=== PATIENT | female | born 1985 | race African-American/Black ===

== ENCOUNTER 2017-08-06 05:33 | Inpatient (IN) | payer MEDICARE, MEDICAID ==
[2017-08-06] VITALS (10 sets, daily range): BP systolic 113–171; BP diastolic 63–109; PULSE 109–134; RESP 16–27; TEMP 99.6–102.8; O2SAT 94–97
[~2017-08-06] VITALS: Ht 157.5 cm; Wt 77.7 kg
[~2017-08-06 05:33] MED LIST: IBUP800T23 PO; LISI10TA PO; METH750T2 PO; [UNRECOGNIZED DRUG - REMARK]
[2017-08-06] MEDS ORDERED: SODIUM CHLOR 0.9% 1000 ML INJ 1,000 ML IV ONE ×2 (05:40)
[2017-08-06] MEDS ORDERED: SODIUM CHLOR 0.9% 1000 ML INJ 700 ML IV ONE (05:40)
[2017-08-06] MEDS ORDERED: ACETAMINOPHEN 325 MG TAB PO ONE (05:45)
[2017-08-06] MEDS ORDERED: ONDANSETRON HCL 4 MG/2 ML VIAL ONE (05:48)
--- NOTE | 2017-08-06 05:51 | PD ---
HPI Chief Complaint: Fever Time Seen by Provider: 05:40 Travel History International Travel<30 days: No Contact w/Intl Traveler<30days: No Traveled to known affect area: No History of Present Illness HPI The 32 year-old woman, history of HIV, off meds for several months, presents to the emergency department feeling poorly for several days, lower abdominal pain for several days, and noted to have fever the emergency department here. She states she had a bowel movement before she came in was normal. No diarrhea. No nausea vomiting previously, but vomiting here in the ED. No urinary complaints. She sexually active with women only. No vaginal discharge or vaginal bleeding. History Past Medical History Narrative Medical HIV LMP: 06/2017 : 0 Para: 0 Past Surgical History Surgical History: No Previous Surgery Social History Alcohol Use: No Tobacco Use: Yes Allergies-Medications (Allergen,Severity, Reaction): Coded Allergies: No Known Allergies (Verified , 08/06/17) Reported Meds & Prescriptions Reported Meds & Active Scripts Active Reported [Unk Hiv Med] DAILY Review of Systems Except as stated in HPI: all other systems reviewed are Neg Physical Exam Narrative GENERAL: Well-appearing 32-year-old woman, no acute distress. SKIN: Focused skin assessment flushed and hot. NECK: Trachea midline. No JVD. CARDIOVASCULAR: Heart rate rapid. RESPIRATORY: No accessory muscle use. Clear to auscultation. Breath sounds equal bilaterally. GASTROINTESTINAL: Abdomen is obese and soft. She has moderate lower abdominal tenderness with a little bit of voluntary guarding in the right. No rebound. MUSCULOSKELETAL: No obvious deformities. No edema. NEUROLOGICAL: Awake and alert. No obvious cranial nerve deficits. Motor grossly within normal limits. Normal speech. PSYCHIATRIC: Appropriate mood and affect; insight and judgment normal. Data Data Last Documented VS Vital Signs Date Time Temp Pulse Resp B/P (MAP) Pulse Ox O2 Delivery O2 Flow Rate FiO2 08/06/17 05:43 19 97 08/06/17 05:35 102.8 130 167/109 (128) Orders Orders Electrocardiogram (08/06/17 05:40) Complete Blood Count With Diff (08/06/17 05:40) Comprehensive Metabolic Panel (08/06/17 05:40) Prothrombin Time / Inr (Pt) (08/06/17 05:40) Act Partial Throm Time (Ptt) (08/06/17 05:40) Lactic Acid Sepsis Protocol (08/06/17 05:40) Lipase (08/06/17 05:40) Troponin I (08/06/17 05:40) Urinalysis - C+S If Indicated (08/06/17 05:40) Influenzae A/B Antigen (08/06/17 05:40) Blood Culture (08/06/17 05:40) Chest, Single Ap (08/06/17 05:40) Blood Glucose (08/06/17 05:40) Ecg Monitoring (08/06/17 05:40) Iv Access Insert/Monitor (08/06/17 05:40) Oximetry (08/06/17 05:40) Oxygen Administration (08/06/17 05:40) Acetaminophen (Tylenol) (08/06/17 05:45) Ct Abd/Pel W Iv Contrast(Rout) (08/06/17 05:40) Sodium Chlor 0.9% 1000 Ml Inj (Ns 1000 M (08/06/17 05:40) Sodium Chlor 0.9% 1000 Ml Inj (Ns 1000 M (08/06/17 05:40) Sodium Chlor 0.9% 1000 Ml Inj (Ns 1000 M (08/06/17 05:40) Ed Urine Pregnancytest Poc (08/06/17 05:47) Ondansetron Inj (Zofran Inj) (08/06/17 06:00) Ondansetron Inj (Zofran Inj) (08/06/17 05:48) Cath For Specimen (08/06/17 06:30) Iohexol 350 Inj (Omnipaque 350 Inj) (08/06/17 06:37) Vancomycin Inj (Vancomycin Inj) (08/06/17 07:00) Piperacil-Tazo 3.375 Gm Premix (Zosyn 3. (08/06/17 07:00) Us Pelvis Comp Ladder Operator/Non-Preg (08/06/17 ) Labs Laboratory Tests Test 08/06/17 05:45 White Blood Count 17.2 TH/MM3 Red Blood Count 3.75 MIL/MM3 Hemoglobin 12.0 GM/DL Hematocrit 34.6 % Mean Corpuscular Volume 92.2 FL Mean Corpuscular Hemoglobin 32.0 PG Mean Corpuscular Hemoglobin Concent 34.7 % Red Cell Distribution Width 13.9 % Platelet Count 217 TH/MM3 Mean Platelet Volume 7.5 FL Neutrophils (%) (Auto) 81.6 % Lymphocytes (%) (Auto) 9.0 % Monocytes (%) (Auto) 9.3 % Eosinophils (%) (Auto) 0.0 % Basophils (%) (Auto) 0.1 % Neutrophils # (Auto) 14.0 TH/MM3 Lymphocytes # (Auto) 1.5 TH/MM3 Monocytes # (Auto) 1.6 TH/MM3 Eosinophils # (Auto) 0.0 TH/MM3 Basophils # (Auto) 0.0 TH/MM3 CBC Comment DIFF FINAL Differential Comment Prothrombin Time 12.0 SEC Prothromb Time International Ratio 1.1 RATIO Activated Partial Thromboplast Time 32.0 SEC Blood Urea Nitrogen 7 MG/DL Creatinine 0.69 MG/DL Random Glucose 126 MG/DL Total Protein 8.5 GM/DL Albumin 2.9 GM/DL Calcium Level 8.1 MG/DL Alkaline Phosphatase 51 U/L Aspartate Amino Transf (AST/SGOT) 30 U/L Alanine Aminotransferase (ALT/SGPT) 19 U/L Total Bilirubin 0.6 MG/DL Sodium Level 136 MEQ/L Potassium Level 3.6 MEQ/L Chloride Level 107 MEQ/L Carbon Dioxide Level 19.4 MEQ/L Anion Gap 10 MEQ/L Estimat Glomerular Filtration Rate 120 ML/MIN Lactic Acid Level 1.2 mmol/L Troponin I LESS THAN 0.02 NG/ML Lipase 50 U/L MDM Medical Decision Making Medical Screen Exam Complete: Yes Emergency Medical Condition: Yes Interpretation(s) My review of EKG: Sinus tachycardia at a rate of 127, normal axis, normal intervals, no ischemia. LABS: CBC remarkable for mild leukocytosis. CMP CMP overall unremarkable. She is a little bit of a gamma Lipase low Troponin negative Lactate 1.2 Coags mildly elevated Influenza negative CT abdomen and pelvis: Complex multiloculated multiseptated mass in the pelvis measuring up to 12.1 cm in diameter. Differential diagnosis includes infection/ abscess versus neoplasm possibly ovarian in origin. A small amount of free fluid in the pelvis. Mildly enlarged pelvic and left inguinal lymph nodes. No bowel obstruction or free air. Chest x-ray: Mild right basilar airspace disease. Differential diagnosis includes small bronchopneumonia. Differential Diagnosis Sepsis, [place], appendicitis, , UTI, colitis, PID, other Narrative Course Medical decision making the 32-year-old woman presents emergent further history of HIV, not on meds for couple months, with fever tachycardia abdominal pain and vomiting suspicious for UTI or [place], other intra-abdominal processes possible as well. Denies any symptoms. Check CT, labs, lactate, IV fluids, possible antibiotics. Reassess. Bobby Lawson MD Aug 06, 2017 05:51
[2017-08-06] MEDS ORDERED: ONDANSETRON HCL 4 MG/2 ML VIAL IV ONE (06:00)
[2017-08-06 06:11] LABS: BASOPHIL % 0.1 % (0.0-2.0); HEMATOCRIT 34.6 % (35.0-46.0); HEMO FLAGS DIFF FINAL; LYMPHOCYTE # 1.5 TH/MM3 (1.0-4.8); MEAN CELL VOLUME 92.2 FL (80.0-100.0); MEAN CORPUSCULAR HGB CONC 34.7 % (32.0-36.0); MONO % 9.3 % (0.0-8.0); NEUT % 81.6 % (16.0-70.0); PLATELET COUNT 217 TH/MM3 (150-450); RED BLOOD COUNT 3.75 MIL/MM3 (4.00-5.30); RED CELL DISTRIBUTION WIDTH 13.9 % (11.6-17.2); WHITE BLOOD COUNT 17.2 TH/MM3 (4.0-11.0)
[2017-08-06 06:22] LABS: INTERNATIONAL NORMALIZED RATIO 1.1 RATIO
[2017-08-06] MEDS ORDERED: IOHEXOL 350 MG/ML 10 ML VIAL (for RAD DIAG) IVCONTRAST ONE (06:37)
--- NOTE | 2017-08-06 06:49 | RADRPT ---
EXAM DATE/TIME: 08/06/2017 05:59 [facility] COMPARISON: No previous studies available for comparison. INDICATIONS : Fever and vomiting. MEDICAL HISTORY : Smoker. SURGICAL HISTORY : None. ENCOUNTER: Initial ACUITY: 2 days PAIN SCORE: 0/10 LOCATION: Bilateral FINDINGS: There is mild right basilar airspace disease which could represent small bronchopneumonia. No effusio n. Left lung relatively clear. Heart size upper limits normal. CONCLUSION: 1. Mild right basilar airspace disease. Differential diagnosis includes a small bronchopneumonia. Elie Calvert MD on August 06, 2017 at 6:47 Board Certified Radiologist. This report was verified electronically.
--- NOTE | 2017-08-06 06:49 | RADRPT ---
EXAM DATE/TIME: 08/06/2017 06:21 [facility] COMPARISON: No previous studies available for comparison. INDICATIONS : Abdominal pain with fever. IV CONTRAST: 100 cc Omnipaque 350 (iohexol) IV ORAL CONTRAST: No oral contrast ingested. RADIATION DOSE: 7.37 CTDIvol (mGy) MEDICAL HISTORY : HIV. SURGICAL HISTORY : None. ENCOUNTER: Initial ACUITY: 1 day PAIN SCALE: 8/10 LOCATION: abdomen TECHNIQUE: Volumetric scanning of the abdomen and pelvis was performed. Using automated exposure control and ad justment of the mA and/or kV according to patient size, radiation dose was kept as low as reasonably achievable to obtain optimal diagnostic quality images. DICOM format image data is available electro nically for review and comparison. FINDINGS: There is minimal right basilar air space disease in the lungs. No acute findings in the liver, spleen, adrenals, kidneys and pancreas. Within the pelvis there is a large complex multiloculated fluid collection with thick septations scot uring up to 12.1 x 6.9 x 7.4 cm. Patient reportedly has fever. Differential diagnosis includes pelvic abscesses although other etiologies such as ovarian neoplasm not excluded. There is a small amount o f free fluid in the pelvis. There is no free air. No bowel obstruction. They are mildly enlarged pelvic lymph nodes measuring up to 1.4 x 2.5 cm and the left external iliac region. Borderline enlarged left inguinal lymph nodes as well. CONCLUSION: 1. Complex multiloculated multiseptated mass in the pelvis measuring up to 12.1 cm in diameter. Diffe rential diagnosis includes infection/abscess versus neoplasm possibly ovarian in origin. Small amount of free fluid in the pelvis. Mildly enlarged pelvic and left inguinal lymph nodes. No bowel obstruct ion or free air. Elie Calvert MD on August 06, 2017 at 6:40 Board Certified Radiologist. This report was verified electronically.
[2017-08-06 06:58] LABS: ALKALINE PHOSPHATASE 51 U/L (45-117); TOTAL BILIRUBIN ADULT 0.6 MG/DL (0.2-1.0)
[2017-08-06] MEDS ORDERED: PIPERACIL-TAZO 3.375 GM PREMIX 50 ML IV ONE (07:00)
[2017-08-06] MEDS ORDERED: VANCOMYCIN INJ 1,000 MG in SODIUM CHLOR 0.9% 250 ML INJ 250 ML IV ONE (07:00)
[2017-08-06 07:02] LABS: ALT (GPT) 19 U/L (10-53); ANION GAP 10 MEQ/L (5-15); AST (GOT) 30 U/L (15-37); BICARBONATE 19.4 MEQ/L (21.0-32.0); CHLORIDE 107 MEQ/L (98-107); GLOMERULAR FILTRATION RATE 120 ML/MIN (>89); POTASSIUM 3.6 MEQ/L (3.5-5.1); SODIUM (NA) 136 MEQ/L (136-145)
[2017-08-06 07:04] LABS: BLOOD UREA NITROGEN 7 MG/DL (7-18)
--- NOTE | 2017-08-06 07:50 | PD ---
Data Data Last Documented VS Vital Signs Date Time Temp Pulse Resp B/P (MAP) Pulse Ox O2 Delivery O2 Flow Rate FiO2 08/06/17 07:15 101.8 116 16 171/106 (127) 94 Room Air Orders Orders Electrocardiogram (08/06/17 05:40) Complete Blood Count With Diff (08/06/17 05:40) Comprehensive Metabolic Panel (08/06/17 05:40) Prothrombin Time / Inr (Pt) (08/06/17 05:40) Act Partial Throm Time (Ptt) (08/06/17 05:40) Lactic Acid Sepsis Protocol (08/06/17 05:40) Lipase (08/06/17 05:40) Troponin I (08/06/17 05:40) Urinalysis - C+S If Indicated (08/06/17 05:40) Influenzae A/B Antigen (08/06/17 05:40) Blood Culture (08/06/17 05:40) Chest, Single Ap (08/06/17 05:40) Blood Glucose (08/06/17 05:40) Ecg Monitoring (08/06/17 05:40) Iv Access Insert/Monitor (08/06/17 05:40) Oximetry (08/06/17 05:40) Oxygen Administration (08/06/17 05:40) Acetaminophen (Tylenol) (08/06/17 05:45) Ct Abd/Pel W Iv Contrast(Rout) (08/06/17 05:40) Sodium Chlor 0.9% 1000 Ml Inj (Ns 1000 M (08/06/17 05:40) Sodium Chlor 0.9% 1000 Ml Inj (Ns 1000 M (08/06/17 05:40) Sodium Chlor 0.9% 1000 Ml Inj (Ns 1000 M (08/06/17 05:40) Ed Urine Pregnancytest Poc (08/06/17 05:47) Ondansetron Inj (Zofran Inj) (08/06/17 06:00) Ondansetron Inj (Zofran Inj) (08/06/17 05:48) Cath For Specimen (08/06/17 06:30) Iohexol 350 Inj (Omnipaque 350 Inj) (08/06/17 06:37) Vancomycin Inj (Vancomycin Inj) (08/06/17 07:00) Piperacil-Tazo 3.375 Gm Premix (Zosyn 3. (08/06/17 07:00) Us Pelvis Comp W Doppler (08/06/17 ) Admit Order (Ed Use Only) (08/06/17 07:46) Labs Laboratory Tests Test 08/06/17 05:45 White Blood Count 17.2 TH/MM3 Red Blood Count 3.75 MIL/MM3 Hemoglobin 12.0 GM/DL Hematocrit 34.6 % Mean Corpuscular Volume 92.2 FL Mean Corpuscular Hemoglobin 32.0 PG Mean Corpuscular Hemoglobin Concent 34.7 % Red Cell Distribution Width 13.9 % Platelet Count 217 TH/MM3 Mean Platelet Volume 7.5 FL Neutrophils (%) (Auto) 81.6 % Lymphocytes (%) (Auto) 9.0 % Monocytes (%) (Auto) 9.3 % Eosinophils (%) (Auto) 0.0 % Basophils (%) (Auto) 0.1 % Neutrophils # (Auto) 14.0 TH/MM3 Lymphocytes # (Auto) 1.5 TH/MM3 Monocytes # (Auto) 1.6 TH/MM3 Eosinophils # (Auto) 0.0 TH/MM3 Basophils # (Auto) 0.0 TH/MM3 CBC Comment DIFF FINAL Differential Comment Prothrombin Time 12.0 SEC Prothromb Time International Ratio 1.1 RATIO Activated Partial Thromboplast Time 32.0 SEC Blood Urea Nitrogen 7 MG/DL Creatinine 0.69 MG/DL Random Glucose 126 MG/DL Total Protein 8.5 GM/DL Albumin 2.9 GM/DL Calcium Level 8.1 MG/DL Alkaline Phosphatase 51 U/L Aspartate Amino Transf (AST/SGOT) 30 U/L Alanine Aminotransferase (ALT/SGPT) 19 U/L Total Bilirubin 0.6 MG/DL Sodium Level 136 MEQ/L Potassium Level 3.6 MEQ/L Chloride Level 107 MEQ/L Carbon Dioxide Level 19.4 MEQ/L Anion Gap 10 MEQ/L Estimat Glomerular Filtration Rate 120 ML/MIN Lactic Acid Level 1.2 mmol/L Troponin I LESS THAN 0.02 NG/ML Lipase 50 U/L MDM Supervised Visit with VICKI: No Narrative Course The patient was initially evaluated by the previous provider and signed out to me at the beginning of my shift pending call back from admitting team to admit the patient. See his note for further details. Briefly this a 32-year-old female with history of HIV who presents with fever and lower abdominal pain. She has a white count of 17,000. Fever of 102.8 with a heart rate of 130 initially. She was given IV vancomycin and IV Zosyn by the previous provider as well as a 30 cc/kg normal saline bolus. Chest x- ray shows mild right basilar airspace disease with a differential including small bronchopneumonia. CT abdomen pelvis shows a large loculated mass in the pelvis with a diameter of up to 12 cm with a differential of abscess/infection versus mass. Pelvic ultrasound ordered to further characterize this mass. Case discussed with Dr. Sinclair who will admit the patient to his service. Diagnosis Primary Impression: Sepsis Qualified Codes: A41.9 - Sepsis, unspecified organism Additional Impressions: Bronchopneumonia Pelvic mass Admitting Information Admitting Physician Requests: Castillo Pham MD Aug 06, 2017 07:50
[2017-08-06 08:05] LABS: BLOOD, URINE MOD (NEG); COMMENT (UR) CATH-CULT NOT IND; CULTURE IF INDICATED CATH CULTURE NOT IND; GLUCOSE,URINE NEG (NEG); KETONE, URINE 10 mg/dL (NEG); MUCUS URINE FEW /lpf (OCC); NITRITE,URINE NEG (NEG); PH, URINE 6.5 (5.0-8.5); URINE COLOR YELLOW (YELLW/STRAW)
--- NOTE | 2017-08-06 08:06 | RADRPT ---
EXAM DATE/TIME: 08/06/2017 07:10 [facility] COMPARISON: CT ABDOMEN & PELVIS W CONTRAST, August 06, 2017, 6:21. INDICATIONS : Pelvic pain. MEDICAL HISTORY : HIV. SURGICAL HISTORY : None. ENCOUNTER: Initial ACUITY: 1 week PAIN SCORE: 5/10 LOCATION: Bilateral pelvis MEASUREMENTS: UTERUS: Not visualized transabdominally. ENDOMETRIAL STRIPE: RIGHT OVARY: 5.0 x 3.5 x 3.8 cm LEFT OVARY: 4.7 x 5.1 x 4.3 cm FINDINGS: UTERUS: The uterus is not visualized transabdominally. The patient refused transvaginal exam. RIGHT OVARY: The right ovary demonstrates small normal-appearing follicles and punctate areas of calcifications. M edially surrounding the right ovary is a complex cystic structure which demonstrates multiple tubular areas which demonstrate thin and thickened donohue. LEFT OVARY: The left ovary demonstrates an avascular dominant follicle which demonstrates lacy internal septation s with the appearance of a hemorrhagic corpus luteum. Immediately surrounding the left ovary is a lar ge complex structure of closely adherent connecting tubular structures which demonstrate alternating thick and thin septations. MISCELLANEOUS: Trace free fluid seen within the posterior cul-de-sac.. CONCLUSION: The uterus is not visualized on this transabdominal exam and the patient refused a transvaginal exam. The uterus was normal in appearance on the comparison CT. The bilateral ovaries are surrounded by a closely adherent tubular structures which demonstrate alternating areas of thin and thickened donohue. No internal debris is identified within the lumens of the structures. Given the patient's presentatio n of fever and pain and the appearance of the closely adherent tubular structures this is concerning for PID with bilateral tubo-ovarian abscess. Neoplasm remains within the differential but is consider ed less likely. Recommend followup imaging after appropriate antibiotic therapy. Jovana Yip MD on August 06, 2017 at 7:51 Board Certified Radiologist. This report was verified electronically.
[2017-08-06] MEDS ORDERED: MAGNESIUM HYDROXIDE SUSP 30 ML CUP PO PRN (08:15)
[2017-08-06] MEDS ORDERED: BISACODYL 10 MG SUPP RECTAL PRN (08:15)
[2017-08-06] MEDS ORDERED: LACTULOSE SYRUP 20 GM/30 ML CUP PO PRN (08:15)
[2017-08-06] MEDS ORDERED: SODIUM CHLORIDE 0.9% FLUSH 10 ML FLUSH IV FLUSH PRN (08:15)
[2017-08-06] MEDS ORDERED: SENNOSIDES 8.6 MG TAB PO PRN (08:15)
[2017-08-06] MEDS ORDERED: Vancomycin Consult Pharmacy 1 EA OTHER SCH (08:15)
[2017-08-06] MEDS ORDERED: NALOXONE HCL 0.4 MG/ML AMP IV PUSH PRN ×2 (08:15→23:30)
[2017-08-06] MEDS ORDERED: ONDANSETRON HCL 4 MG/2 ML VIAL IVP PRN (08:15)
--- NOTE | 2017-08-06 08:16 | EKG ---
Date Performed: 08/06/2017 Time Performed: 05:42:36 PTAGE: 32 years EKG: SINUS TACHYCARDIA INCOMPLETE RIGHT BUNDLE BRANCH BLOCK NONSPECIFIC T-WAVE ABNORMALITY ABNOR MAL RHYTHM ECG NO PREVIOUS TRACING DOCTOR: Kashif Talley Interpretating Date/Time 08/06/2017 08:14:53
[2017-08-06] MEDS: SODIUM CHLORIDE 0.9% FLUSH 10 ML FLUSH IV FLUSH SCH ×2 (08:31→21:00)
[2017-08-06] MEDS: SODIUM CHLOR 0.9% 1000 ML INJ 1,000 ML IV SCH ×2 (08:46→13:38)
--- NOTE | 2017-08-06 09:28 | PD.ID.CON ---
History of Present Illness Service ID Consult Requested By Dr Sinclair Reason for Consult HIV pelvic mass fever Primary Care Physician Non-Staff Diagnoses: History of Present Illness 32 yo female with HIV disaese npon compliant, off HAART for 2 yrs, non complaint SHe developped suddent onset L sided lower abdomen pain and fever, chills She presented with fever up to m102.8 and leukocytosis of [address] showed Complex multiloculated multiseptated mass in the pelvis measuring up to 12.1 cm in diameter. Differential diagnosis includes infection/abscess versus neoplasm possibly ovarian in origin. She denies any recent sexual activity with male parthners Was not recently seen by DIDACTIC INSTRUCTOR LMP about 3-4 weeks ago Denies vag d/c or drainage No IUD Review of Systems Except as stated in HPI: all other systems reviewed are Neg Past Family Social History Allergies: Coded Allergies: No Known Allergies (Verified , 08/06/17) Past Medical History HIV dz Past Surgical History none Active Ordered Medications Medications where reviewed in EMR Antibiotics Include: zosyn vancomycin - x 1 started on amp+ gent + clinda Family History reviewed and noncontributory. Social History Patient's smoked 2 packs per day since she was a teenager. Nondrinker. Occasional marijuana. Lives with girlfriend. Physical Exam Vital Signs Vital Signs Date Time Temp Pulse Resp B/P (MAP) Pulse Ox O2 Delivery O2 Flow Rate FiO2 08/06/17 07:52 116 16 130/79 (96) 94 Room Air 08/06/17 07:15 101.8 116 16 171/106 (127) 94 Room Air 08/06/17 05:43 19 97 08/06/17 05:35 102.8 130 19 167/109 (128) 97 Physical Exam CONSTITUTIONAL/GENERAL: This is an obese patient, in no apparent distress, but looks sick TUBES/LINES/DRAINS: SKIN: No jaundice, rashes, or lesions. Skin temperature appropriate. Not diaphoretic. HEAD: Atraumatic. Normocephalic. EYES: Pupils equal and round and reactive. Extraocular motions intact. No scleral icterus. No injection or drainage. Fundi not examined. ENT: Hearing grossly normal. Nose without bleeding or purulent drainage. Oral mucosaew without visible erythema, exudates, masses, or lesions. NO thrush NECK: Trachea midline. Supple, nontender. CARDIOVASCULAR: Regular rate and rhythm without murmurs, gallops, or rubs. No JVD. Peripheral pulses symmetric. RESPIRATORY/CHEST: Symmetric, unlabored respirations. Clear to auscultation. Breath sounds equal bilaterally. No wheezes, rales, or rhonchi. GASTROINTESTINAL: Abdomen soft,very tender to palpation in LLQ , mildly distended. No hepato-splenomegaly, or palpable masses. No guarding. Bowel sounds present. GENITOURINARY: Without palpable bladder distension. MUSCULOSKELETAL: Extremities without clubbing, cyanosis, or edema. . No calf tenderness. No mottling or clubbing. LYMPHATICS: No palpable cervical or supraclavicular adenopathy. NEUROLOGICAL: Awake and alert. Motor and sensory grossly within normal limits. Follows commands. Clear speech. Moves all extremities. PSYCHIATRIC: No obvious anxiety/depression. no apparent hallucinations or other psychotic thought process. Laboratory Laboratory Tests Test 08/06/17 05:45 08/06/17 07:50 White Blood Count 17.2 Red Blood Count 3.75 Hemoglobin 12.0 Hematocrit 34.6 Mean Corpuscular Volume 92.2 Mean Corpuscular Hemoglobin 32.0 Mean Corpuscular Hemoglobin Concent 34.7 Red Cell Distribution Width 13.9 Platelet Count 217 Mean Platelet Volume 7.5 Neutrophils (%) (Auto) 81.6 Lymphocytes (%) (Auto) 9.0 Monocytes (%) (Auto) 9.3 Eosinophils (%) (Auto) 0.0 Basophils (%) (Auto) 0.1 Neutrophils # (Auto) 14.0 Lymphocytes # (Auto) 1.5 Monocytes # (Auto) 1.6 Eosinophils # (Auto) 0.0 Basophils # (Auto) 0.0 CBC Comment DIFF FINAL Differential Comment Prothrombin Time 12.0 Prothromb Time International Ratio 1.1 Activated Partial Thromboplast Time 32.0 Blood Urea Nitrogen 7 Creatinine 0.69 Random Glucose 126 Total Protein 8.5 Albumin 2.9 Calcium Level 8.1 Alkaline Phosphatase 51 Aspartate Amino Transf (AST/SGOT) 30 Alanine Aminotransferase (ALT/SGPT) 19 Total Bilirubin 0.6 Sodium Level 136 Potassium Level 3.6 Chloride Level 107 Carbon Dioxide Level 19.4 Anion Gap 10 Estimat Glomerular Filtration Rate 120 Lactic Acid Level 1.2 Troponin I LESS THAN 0.02 Lipase 50 Urine Color YELLOW Urine Turbidity CLEAR Urine pH 6.5 Urine Specific Cameron GREATER THAN 1.050 Urine Protein 30 Urine Glucose (UA) NEG Urine Ketones 10 Urine Occult Blood MOD Urine Nitrite NEG Urine Bilirubin NEG Urine Urobilinogen 2.0 Urine Leukocyte Esterase NEG Urine RBC 14 Urine WBC 1 Urine Mucus FEW Microscopic Urinalysis Comment CATH-CULT NOT IND Date/Time Source Procedure Growth Status 08/06/17 05:45 Blood Peripheral Aerobic Blood Culture Pending Received 08/06/17 05:45 Blood Peripheral Anaerobic Blood Culture Pending Received 08/06/17 06:03 Nasal Washing Influenza Types A,B Antigen ([facility]) - Final NEGATIVE FOR FLU A AND B ANTIGEN.... Complete Result Diagram: 08/06/1745 08/06/1745 Imaging Last Impressions Chest X-Ray 08/06/1740 Signed Impressions: Service Date/Time: Sunday, August 06, 2017 05:59 - CONCLUSION: 1. Mild right basilar airspace disease. Differential diagnosis includes a small bronchopneumonia. Elie Calvert MD Abdomen/Pelvis CT 08/06/1740 Signed Impressions: Service Date/Time: Sunday, August 06, 2017 06:21 - CONCLUSION: 1. Complex multiloculated multiseptated mass in the pelvis measuring up to 12.1 cm in diameter. Differential diagnosis includes infection/abscess versus neoplasm possibly ovarian in origin. Small amount of free fluid in the pelvis. Mildly enlarged pelvic and left inguinal lymph nodes. No bowel obstruction or free air. Elie Calvert MD Pelvis Ultrasound 08/06/17 0000 Signed Impressions: Service Date/Time: Sunday, August 06, 2017 07:10 - CONCLUSION: The uterus is not visualized on this transabdominal exam and the patient refused a transvaginal exam. The uterus was normal in appearance on the comparison CT. The bilateral ovaries are surrounded by a closely adherent tubular structures which demonstrate alternating areas of thin and thickened donohue. No internal debris is identified within the lumens of the structures. Given the patient's presentation of fever and pain and the appearance of the closely adherent tubular structures this is concerning for PID with bilateral tubo-ovarian abscess. Neoplasm remains within the differential but is considered less likely. Recommend followup imaging after appropriate antibiotic therapy. Jovana Yip MD Assessment and Plan Assessment and Plan Probable pelvic abscess ( complex fluid collection, fever and leukocytosis) HIV disease, non compliant , off HAART 2 years Fever - 2/2 pelvic abscess Cont broad spectrum abx (zosyn) [facility] consultation further abx adjustement per clx report Margaux Lipscomb MD Aug 06, 2017 09:28
[2017-08-06 11:22] LABS: CHLAMYDIA PCR NOT DETECTED (NOT DETECT); NEISSERIA PCR NOT DETECTED (NOT DETECT)
[2017-08-06] MEDS ORDERED: AMPICILLIN INJ 2,000 MG in SODIUM CHLORIDE 0.9% INJ 100 ML IV SCH (12:00)
[2017-08-06] MEDS ORDERED: GENTAMICIN INJ 400 MG in SODIUM CHLORIDE 0.9% INJ 100 ML IV SCH (12:00)
[2017-08-06] MEDS ORDERED: PIPERACIL-TAZO 3.375 GM PREMIX 50 ML IV SCH (13:00)
--- NOTE | 2017-08-06 13:15 | PD.CONS ---
HPI Chief Complaint Abdominal pain Date Seen: Aug 06, 2017 Time Seen: 12:30 (Bernardo Reeves MD R2) Travel History International Travel<30 Days: No Contact w/Intl Traveler<30Days: No Known Affected Area: No (Bernardo Reeves MD R2) History of Present Illness HPI 32 yo G0 with PMH of HIV presenting with a two-day history of pelvic/lower abdominal pain. Started 2 days ago a few hours after having sex with her girlfriend (now aida) of 6 years. She didn't think much of it at first, but it progressively worsened prompting her to seek care. The pain is constant and localized to her lower abdomen/pelvis, slightly worse on the right-hand side. She denies vaginal bleeding or discharge, genital rashes, dysuria, constipation , nausea or vomiting, diarrhea. She does endorse some subjective fevers at home. Prior history significant for Chlamydia 2 years ago. That was her only STD that she knows of. Regarding her HIV, she is established with an ID physician, Dr. Michaud ( patient not sure of spelling). She states her last visit was 2 months ago. She thinks her last CD4 count was a year ago and she says that it was "good", but she does not remember the number. She does not know when her last viral load was. She has not been on antiviral treatment. (Bernardo Reeves MD R2) History Past Medical History Narrative Medical HIV (Bernardo Reeves MD R2) Obstetric History Obstetric History G0 LMP Jun 2017 (Bernardo Reeves MD R2) Past Surgical History Surgical History: No Previous Surgery (Bernardo Reeves MD R2) Family History Narrative Family History Grandfather has sickle cell trait (Bernardo Reeves MD R2) Social History Narrative Social History Monogamous relationship with female partner (aida) for 6 years Lives with girlfriend Girlfriend's grandson visits often Alcohol Use: No Tobacco Use: Yes (2 packs per day) Substance Abuse: No (Bernardo Reeves MD R2) Allergies-Medications (Allergen,Severity, Reaction): Coded Allergies: No Known Allergies (Verified , 08/06/17) Home Meds Reported Medications [Unk Hiv Med] No Conflict Check, DAILY 01/05/15 Review of Systems Except as stated in HPI: all other systems reviewed are Neg (Bernardo Reeves MD R2) Physical Exam Vital Signs Date Time Temp Pulse Resp B/P (MAP) Pulse Ox O2 Delivery O2 Flow Rate FiO2 08/06/17 13:00 08/06/17 09:00 116 27 146/96 (113) 96 Room Air 08/06/17 07:52 116 16 130/79 (96) 94 Room Air 08/06/17 07:15 101.8 116 16 171/106 (127) 94 Room Air 08/06/17 05:43 19 97 08/06/17 05:35 102.8 130 19 167/109 (128) 97 Narrative GENERAL: Well-developed, well-nourished obese female lying in bed appearing uncomfortable but in no acute distress SKIN: No rashes, ecchymoses or lesions. Cool and dry. HEAD: NC/AT EYES: PERRL. EOMI. No conjunctival injection or drainage. ENT: MMM, OP without erythema, tonsillar swelling, or exudate. NECK: Supple, no lymphadenopathy. CARDIOVASCULAR: NRRR. Normal S1/S2. No MRG RESPIRATORY: CTAB. No crackles or wheezes. GASTROINTESTINAL: Abdomen soft, non-distended, moderately tender palpation in bilateral pelvis, significantly worsened right pelvis. No hepato-splenomegaly or palpable masses. MUSCULOSKELETAL: Extremities without clubbing, cyanosis, or edema. NEUROLOGICAL: Awake and alert. Cranial nerves II through XII grossly intact. Moves all extremities without difficulty. Normal speech. (Bernardo Reeves MD R2) Data Data Vital Signs Reviewed: Yes Orders Orders Electrocardiogram (08/06/17 05:40) Complete Blood Count With Diff (08/06/17 05:40) Comprehensive Metabolic Panel (08/06/17 05:40) Prothrombin Time / Inr (Pt) (08/06/17 05:40) Act Partial Throm Time (Ptt) (08/06/17 05:40) Lactic Acid Sepsis Protocol (08/06/17 05:40) Lipase (08/06/17 05:40) Troponin I (08/06/17 05:40) Urinalysis - C+S If Indicated (08/06/17 05:40) Influenzae A/B Antigen (08/06/17 05:40) Blood Culture (08/06/17 05:40) Chest, Single Ap (08/06/17 05:40) Blood Glucose (08/06/17 05:40) Ecg Monitoring (08/06/17 05:40) Iv Access Insert/Monitor (08/06/17 05:40) Oximetry (08/06/17 05:40) Oxygen Administration (08/06/17 05:40) Acetaminophen (Tylenol) (08/06/17 05:45) Ct Abd/Pel W Iv Contrast(Rout) (08/06/17 05:40) Sodium Chlor 0.9% 1000 Ml Inj (Ns 1000 M (08/06/17 05:40) Sodium Chlor 0.9% 1000 Ml Inj (Ns 1000 M (08/06/17 05:40) Sodium Chlor 0.9% 1000 Ml Inj (Ns 1000 M (08/06/17 05:40) Ed Urine Pregnancytest Poc (08/06/17 05:47) Ondansetron Inj (Zofran Inj) (08/06/17 06:00) Ondansetron Inj (Zofran Inj) (08/06/17 05:48) Cath For Specimen (08/06/17 06:30) Iohexol 350 Inj (Omnipaque 350 Inj) (08/06/17 06:37) Vancomycin Inj (Vancomycin Inj) (08/06/17 07:00) Piperacil-Tazo 3.375 Gm Premix (Zosyn 3. (08/06/17 07:00) Us Pelvis Comp W Doppler (08/06/17 ) Admit Order (Ed Use Only) (08/06/17 07:46) Admit To Inpatient (08/06/17 ) Vital Signs (Adult) Q4H (08/06/17 08:02) Activity Oob With Assistance (08/06/17 08:02) Diet Npo (08/06/17 Breakfast) Sodium Chlor 0.9% 1000 Ml Inj (Ns 1000 M (08/06/17 08:02) Sodium Chloride 0.9% Flush (Ns Flush) (08/06/17 08:15) Sodium Chloride 0.9% Flush (Ns Flush) (08/06/17 09:00) Ondansetron Inj (Zofran Inj) (08/06/17 08:15) Comprehensive Metabolic Panel (08/07/17 06:00) Pt Request For Service (08/06/17 08:02) Case Management Consult (08/06/17 08:02) Scd Bilateral/Knee High PAOLO.BID (08/06/17 08:02) Naloxone Inj (Narcan Inj) (08/06/17 08:15) Magnesium Hydroxide Liq (Milk Of Magnesi (08/06/17 08:15) Sennosides (Senokot) (08/06/17 08:15) Bisacodyl Supp (Dulcolax Supp) (08/06/17 08:15) Lactulose Liq (Lactulose Liq) (08/06/17 08:15) Inpatient Certification (08/06/17 ) Piperacil-Tazo 3.375 Gm Premix (Zosyn 3. (08/06/17 13:00) Vancomycin Consult Pharmacy (Vancomycin (08/06/17 08:15) Consult Infectious Disease (08/06/17 ) Gc And Chlamydia Pcr (08/06/17 08:09) (Hub Use Only)Inp Phy Cons/Ref (08/06/17 ) Vancomycin Inj (Vancomycin Inj) (08/06/17 21:00) Creatinine (08/07/17 06:00) Consult Gynecology (08/06/17 ) (Hub Use Only)Inp Phy Cons/Ref (08/06/17 ) Gentamicin Inj (Gentamicin Inj) (08/06/17 12:00) Ampicillin Inj (Ampicillin Inj) (08/06/17 12:00) Clindamycin Inj (Cleocin Inj) (08/06/17 13:00) Piperacil-Tazo 3.375 Gm Premix (Zosyn 3. (08/06/17 14:00) Labs Laboratory Tests Test 08/06/17 05:45 08/06/17 07:50 White Blood Count 17.2 Red Blood Count 3.75 Hemoglobin 12.0 Hematocrit 34.6 Mean Corpuscular Volume 92.2 Mean Corpuscular Hemoglobin 32.0 Mean Corpuscular Hemoglobin Concent 34.7 Red Cell Distribution Width 13.9 Platelet Count 217 Mean Platelet Volume 7.5 Neutrophils (%) (Auto) 81.6 Lymphocytes (%) (Auto) 9.0 Monocytes (%) (Auto) 9.3 Eosinophils (%) (Auto) 0.0 Basophils (%) (Auto) 0.1 Neutrophils # (Auto) 14.0 Lymphocytes # (Auto) 1.5 Monocytes # (Auto) 1.6 Eosinophils # (Auto) 0.0 Basophils # (Auto) 0.0 CBC Comment DIFF FINAL Differential Comment Prothrombin Time 12.0 Prothromb Time International Ratio 1.1 Activated Partial Thromboplast Time 32.0 Blood Urea Nitrogen 7 Creatinine 0.69 Random Glucose 126 Total Protein 8.5 Albumin 2.9 Calcium Level 8.1 Alkaline Phosphatase 51 Aspartate Amino Transf (AST/SGOT) 30 Alanine Aminotransferase (ALT/SGPT) 19 Total Bilirubin 0.6 Sodium Level 136 Potassium Level 3.6 Chloride Level 107 Carbon Dioxide Level 19.4 Anion Gap 10 Estimat Glomerular Filtration Rate 120 Lactic Acid Level 1.2 Troponin I LESS THAN 0.02 Lipase 50 Urine Color YELLOW Urine Turbidity CLEAR Urine pH 6.5 Urine Specific [place] GREATER THAN 1.050 Urine Protein 30 Urine Glucose (UA) NEG Urine Ketones 10 Urine Occult Blood MOD Urine Nitrite NEG Urine Bilirubin NEG Urine Urobilinogen 2.0 Urine Leukocyte Esterase NEG Urine RBC 14 Urine WBC 1 Urine Mucus FEW Microscopic Urinalysis Comment CATH-CULT NOT IND Chlamydia trachomatis DNA (PCR) NOT DETECTED Neisseria gonorrhoeae DNA (PCR) NOT DETECTED Date/Time Source Procedure Growth Status 08/06/17 05:45 Blood Peripheral Aerobic Blood Culture Pending Received 08/06/17 05:45 Blood Peripheral Anaerobic Blood Culture Pending Received 08/06/17 06:03 Nasal Washing Influenza Types A,B Antigen (MARC) - Final NEGATIVE FOR FLU A AND B ANTIGEN.... Complete Imaging Chest X-Ray 08/06/1740 Signed Impressions: Service Date/Time: Sunday, August 06, 2017 05:59 - CONCLUSION: 1. Mild right basilar airspace disease. Differential diagnosis includes a small bronchopneumonia. Elie Calvert MD Abdomen/Pelvis CT 08/06/17 0598 Signed Impressions: Service Date/Time: Sunday, August 06, 2017 06:21 - CONCLUSION: 1. Complex multiloculated multiseptated mass in the pelvis measuring up to 12.1 cm in diameter. Differential diagnosis includes infection/abscess versus neoplasm possibly ovarian in origin. Small amount of free fluid in the pelvis. Mildly enlarged pelvic and left inguinal lymph nodes. No bowel obstruction or free air. Elie Calvert MD Pelvis Ultrasound 08/06/17 0000 Signed Impressions: Service Date/Time: Sunday, August 06, 2017 07:10 - CONCLUSION: The uterus is not visualized on this transabdominal exam and the patient refused a transvaginal exam. The uterus was normal in appearance on the comparison CT. The bilateral ovaries are surrounded by a closely adherent tubular structures which demonstrate alternating areas of thin and thickened donohue. No internal debris is identified within the lumens of the structures. Given the patient's presentation of fever and pain and the appearance of the closely adherent tubular structures this is concerning for PID with bilateral tubo-ovarian abscess. Neoplasm remains within the differential but is considered less likely. Recommend followup imaging after appropriate antibiotic therapy. Jovana Yip MD (Bernardo Reeves MD R2) [facility] Medical Record Reviewed: Yes Plan 32-year-old female with two-day history of abdominal pain found to have bilateral pelvic abscess #1 pelvic abscess Currently stable, does not have a surgical abdomen Urine test negative - Status post vancomycin and Zosyn in the emergency department - Gentamicin 5 mg/kg per day = 400 mg IV daily - Clindamycin 900 mg IV every 8 hours - Ampicillin 2 g IV every 6 hours - If clinically deteriorating or acute abdomen develops, consider surgical management - Tylenol as needed for fever - Pain management per primary team #2 HIV Questionable compliance, not currently on antivirals, latest CD4 and viral load unknown - Consult infectious disease, appreciate recommendations and assistance #3 tobacco abuse Cessation counseling prior to discharge dw Dr. Barr Admitting diagnosis: Sepsis, pelvic mass vs abscess (Bernardo Reeves MD R2) Attending Attestation Patient seen and evaluated with resident under direct supervision, agree with assessment and plan. (Bobby Barr MD) Bernardo Reeves MD R2 Aug 06, 2017 13:14 Bobby Barr MD Aug 07, 2017 07:33
[2017-08-06] MEDS: PIPERACIL-TAZO 3.375 GM PREMIX 50 ML IV SCH ×2 (13:38→20:42)
[2017-08-06] MEDS: CLINDAMYCIN INJ 900 MG in SODIUM CHLORIDE 0.9% INJ 100 ML IV SCH ×2 (13:38→20:42)
--- NOTE | 2017-08-06 16:37 | HHI.HP ---
[facility] Ad[facility] Diagnosis Sepsis, pelvic mass vs abscess Diagnoses: Travel History International Travel<30 Days: No Contact w/Intl Traveler <30 Da: No Traveled to Known Affected Are: No History of Present Illness 32-year-old female with a history of HIV, noncompliant with medication regimen or follow-up, also with history of hypertension, who presents with 2 day history of severe constant lower abdominal pain. Denies any vaginal discharge. She denied fevers, however does report chills at home. Denies any chest pain , shortness of breath, nausea, vomiting, diarrhea, constipation. Regarding HIV follow-up, patientaida says that patient will follow-up for labs, however does not see her physician. Uncertain of most recent CD4 count. Review of Systems performed and negative except for HPI and past medical history. Past Family Social History Past Medical History HIV. Noncompliant. Has not been on antiretrovirals for 2 years. History of hypertension in the past. Past Surgical History Patient denies any previous surgeries. Reported Medications patient does not take medications. Allergies: Coded Allergies: No Known Allergies (Verified , 08/06/17) Family History Family history reviewed with the patient and found to be currently noncontributory. Grandfather with sickle cell trait. Social History Patient's smoked 2 packs per day since she was a teenager. Nondrinker. Occasional marijuana. Lives with girlfriend. Physical Exam Vital Signs Vital Signs Date Time Temp Pulse Resp B/P (MAP) Pulse Ox O2 Delivery O2 Flow Rate FiO2 08/06/17 13:20 100.3 124 20 134/89 (104) 95 08/06/17 13:00 08/06/17 09:00 116 27 146/96 (113) 96 Room Air 08/06/17 07:52 116 16 130/79 (96) 94 Room Air 08/06/17 07:15 101.8 116 16 171/106 (127) 94 Room Air 08/06/17 05:43 19 97 08/06/17 05:35 102.8 130 19 167/109 (128) 97 Physical Exam GENERAL: This is a well-nourished, well-developed patient, appears in pain. SKIN: No rashes, ecchymoses or lesions. Cool and dry. HEAD: Atraumatic. Normocephalic. No temporal or scalp tenderness. EYES: Pupils equal round and reactive. Extraocular motions intact. No scleral icterus. No injection or drainage. ENT: Nose without bleeding, purulent drainage or septal hematoma. Throat without erythema, tonsillar hypertrophy or exudate. Uvula midline. Airway patent. NECK: Trachea midline. No JVD or lymphadenopathy. Supple, nontender, no meningeal signs. CARDIOVASCULAR: Regular rate and rhythm without murmurs, gallops, or rubs. RESPIRATORY: Clear to auscultation. Breath sounds equal bilaterally. No wheezes , rales, or rhonchi. GASTROINTESTINAL: Abdomen soft, nondistended. No hepato-splenomegaly, or palpable masses. No guarding. Tender to moderate palpation diffusely. No rebound MUSCULOSKELETAL: Extremities without clubbing, cyanosis, or edema. No joint tenderness, effusion, or edema noted. No calf tenderness. Negative Homans sign bilaterally. NEUROLOGICAL: Awake and alert. Cranial nerves II through XII intact. Motor and sensory grossly within normal limits. Five out of 5 muscle strength in all muscle groups. Normal speech. Laboratory Laboratory Tests Test 08/06/17 05:45 08/06/17 07:50 White Blood Count 17.2 Red Blood Count 3.75 Hemoglobin 12.0 Hematocrit 34.6 Mean Corpuscular Volume 92.2 Mean Corpuscular Hemoglobin 32.0 Mean Corpuscular Hemoglobin Concent 34.7 Red Cell Distribution Width 13.9 Platelet Count 217 Mean Platelet Volume 7.5 Neutrophils (%) (Auto) 81.6 Lymphocytes (%) (Auto) 9.0 Monocytes (%) (Auto) 9.3 Eosinophils (%) (Auto) 0.0 Basophils (%) (Auto) 0.1 Neutrophils # (Auto) 14.0 Lymphocytes # (Auto) 1.5 Monocytes # (Auto) 1.6 Eosinophils # (Auto) 0.0 Basophils # (Auto) 0.0 CBC Comment DIFF FINAL Differential Comment Prothrombin Time 12.0 Prothromb Time International Ratio 1.1 Activated Partial Thromboplast Time 32.0 Blood Urea Nitrogen 7 Creatinine 0.69 Random Glucose 126 Total Protein 8.5 Albumin 2.9 Calcium Level 8.1 Alkaline Phosphatase 51 Aspartate Amino Transf (AST/SGOT) 30 Alanine Aminotransferase (ALT/SGPT) 19 Total Bilirubin 0.6 Sodium Level 136 Potassium Level 3.6 Chloride Level 107 Carbon Dioxide Level 19.4 Anion Gap 10 Estimat Glomerular Filtration Rate 120 Lactic Acid Level 1.2 Troponin I LESS THAN 0.02 Lipase 50 Urine Color YELLOW Urine Turbidity CLEAR Urine pH 6.5 Urine Specific [place] GREATER THAN 1.050 Urine Protein 30 Urine Glucose (UA) NEG Urine Ketones 10 Urine Occult Blood MOD Urine Nitrite NEG Urine Bilirubin NEG Urine Urobilinogen 2.0 Urine Leukocyte Esterase NEG Urine RBC 14 Urine WBC 1 Urine Mucus FEW Microscopic Urinalysis Comment CATH-CULT NOT IND Chlamydia trachomatis DNA (PCR) NOT DETECTED Neisseria gonorrhoeae DNA (PCR) NOT DETECTED Date/Time Source Procedure Growth Status 08/06/17 05:45 Blood Peripheral Aerobic Blood Culture Pending Received 08/06/17 05:45 Blood Peripheral Anaerobic Blood Culture Pending Received 08/06/17 06:03 Nasal Washing Influenza Types A,B Antigen (MARC) - Final NEGATIVE FOR FLU A AND B ANTIGEN.... Complete Result Diagram: 08/06/17 0545 08/06/17 0545 Imaging Last Impressions Chest X-Ray 08/06/17 0540 Signed Impressions: Service Date/Time: Sunday, August 06, 2017 05:59 - CONCLUSION: 1. Mild right basilar airspace disease. Differential diagnosis includes a small bronchopneumonia. Elie Calvert MD Abdomen/Pelvis CT 08/06/17 0540 Signed Impressions: Service Date/Time: Sunday, August 06, 2017 06:21 - CONCLUSION: 1. Complex multiloculated multiseptated mass in the pelvis measuring up to 12.1 cm in diameter. Differential diagnosis includes infection/abscess versus neoplasm possibly ovarian in origin. Small amount of free fluid in the pelvis. Mildly enlarged pelvic and left inguinal lymph nodes. No bowel obstruction or free air. Elie Calvert MD Pelvis Ultrasound 08/06/17 0000 Signed Impressions: Service Date/Time: Sunday, August 06, 2017 07:10 - CONCLUSION: The uterus is not visualized on this transabdominal exam and the patient refused a transvaginal exam. The uterus was normal in appearance on the comparison CT. The bilateral ovaries are surrounded by a closely adherent tubular structures which demonstrate alternating areas of thin and thickened donohue. No internal debris is identified within the lumens of the structures. Given the patient's presentation of fever and pain and the appearance of the closely adherent tubular structures this is concerning for PID with bilateral tubo-ovarian abscess. Neoplasm remains within the differential but is considered less likely. Recommend followup imaging after appropriate antibiotic therapy. MD Scout Alan VTE Risk Assessment Caprinlisa VTE Risk Assessment: No/Low Risk (score <= 1) Caprini Risk Assessment Model Point Value = 1 Point Value = 2 Point Value = 3 Point Value = 5 Age 41-60 Minor surgery BMI > 25 kg/m2 Swollen legs Varicose veins or History of unexplained or recurrent spontaneous Oral contraceptives or hormone replacement Sepsis (< 1 month) Serious lung disease, including pneumonia (< 1 month) Abnormal pulmonary function Acute myocardial infarction Congestive heart failure (< 1 month) History of inflammatory bowel disease Medical patient at bed rest Age 61-74 Arthroscopic surgery Major open surgery (> 45 min) Laparoscopic surgery (> 45 min) Malignancy Confined to bed (> 72 hours) Immobilizing plaster cast Central venous access Age >= 75 History of VTE Family history of VTE Factor V Leiden Prothrombin [id number] Lupus anticoagulant Anticardiolipin antibodies Elevated serum homocysteine Heparin-induced thrombocytopenia Other congenital or acquired thrombophilia Stroke (< 1 month) Elective arthroplasty Hip, pelvis, or leg fracture Acute spinal cord injury (< 1 month) Prophylaxis Regimen Total Risk Factor Score Risk Level Prophylaxis Regimen 0-1 Low Early ambulation 2 Moderate Order ONE of the following: *Sequential Compression Device (SCD) *Heparin 5000 units SQ BID 3-4 Higher Order ONE of the following medications: *Heparin 5000 units SQ TID *Enoxaparin/Lovenox 40 mg SQ daily (WT < 150 kg, CrCl > 30 mL/min) *Enoxaparin/Lovenox 30 mg SQ daily (WT < 150 kg, CrCl > 10-29 mL/min) *Enoxaparin/Lovenox 30 mg SQ BID (WT < 150 kg, CrCl > 30 mL/min) AND/OR *Sequential Compression Device (SCD) 5 or more Highest Order ONE of the following medications: *Heparin 5000 units SQ TID (Preferred with Epidurals) *Enoxaparin/Lovenox 40 mg SQ daily (WT < 150 kg, CrCl > 30 mL/min) *Enoxaparin/Lovenox 30 mg SQ daily (WT < 150 kg, CrCl > 10-29 mL/min) *Enoxaparin/Lovenox 30 mg SQ BID (WT < 150 kg, CrCl > 30 mL/min) AND *Sequential Compression Device (SCD) Assessment and Plan Assessment and Plan //Sepsis. Leukocytosis 17.2, tachycardia 130s, fever 102.8 //Possible small bronchopneumonia //Pelvic abscess -CT abdomen with pelvic abscess. Ultrasound confirms. Patient refuses vaginal ultrasound. -Chest x-ray with small right-sided bronchopneumonia. -Lactate 1.2 Blood cultures ordered and pending -Broad-spectrum IV antibiotics ordered. -Gynecology consult intrapelvic abscess. -Infectious disease following. Appreciate assistance. //HIV. Noncompliant with infectious disease follow-up or medications. -Infectious disease consult. Appreciate assistance. //History of hypertension. Blood pressure acceptable today. We will hold off on any blood pressure medications in the setting of sepsis. //Tobacco abuse. Cessation counseling provided. //Occasional marijuana use. Cessation counseling provided. //Prophylaxis. SCDs. Discussed Condition With patient, nurse, fiance at bedside. Physician Certification 2 Midnight Certification Type: Admission for Inpatient Services Order for Inpatient Services The services are ordered in accordance with Medicare regulations or non- Medicare payer requirements, as applicable. In the case of services not specified as inpatient-only, they are appropriately provided as inpatient services in accordance with the 2-midnight benchmark. Estimated LOS (days): 3 days is the estimated time the patient will need to remain in the hospital, assuming treatment plan goals are met and no additional complications. Post-Hospital Plan: Not yet determined Caio Sinclair MD Aug 06, 2017 16:37
[2017-08-06] MEDS: ACETAMINOPHEN 325 MG TAB PO PRN ×2 (17:35→20:37)
[2017-08-06] MEDS ORDERED: VANCOMYCIN 1,000 MG/NS 250 ML IV SCH ×2 (21:00)
[2017-08-06] MEDS ORDERED: ACETAMINOPHEN/HYDROcodone 325 MG/5 MG TAB PO PRN (23:30)
[2017-08-06] MEDS ORDERED: ACETAMINOPHEN/HYDROcodone 325 MG/7.5 MG TAB PO PRN (23:30)
[2017-08-07] VITALS (10 sets, daily range): BP systolic 113–136; BP diastolic 68–93; PULSE 99–122; RESP 17–20; TEMP 98–102; O2SAT 95–99
[2017-08-07] MEDS: PIPERACIL-TAZO 3.375 GM PREMIX 50 ML IV SCH ×4 (01:51→20:39)
[2017-08-07] MEDS: ACETAMINOPHEN 325 MG TAB PO PRN ×2 (02:02→20:40)
[2017-08-07] MEDS: SODIUM CHLOR 0.9% 1000 ML INJ 1,000 ML IV SCH ×2 (04:02→08:36)
[2017-08-07] MEDS: CLINDAMYCIN INJ 900 MG in SODIUM CHLORIDE 0.9% INJ 100 ML IV SCH ×3 (04:30→20:39)
[2017-08-07] MEDS ORDERED: PNEUMOCOCCAL POLYVALENT INJ 25 MCG/0.5 ML SYR IM ONE (10:00)
[2017-08-07 10:14] LABS: AUTOMATED NEUTROPHIL # 8.4 TH/MM3 (1.8-7.7); BASOPHIL % 0.3 % (0.0-2.0); EOSINOPHIL % 0.1 % (0.0-4.0); HEMO FLAGS DIFF FINAL; LYMPHOCYTE # 0.9 TH/MM3 (1.0-4.8); MEAN CELL VOLUME 86.2 FL (80.0-100.0); MEAN CORPUSCULAR HEMOGLOBIN 28.4 PG (27.0-34.0); MEAN CORPUSCULAR HGB CONC 32.9 % (32.0-36.0); MONO % 7.7 % (0.0-8.0); NEUT % 82.9 % (16.0-70.0); PLATELET COUNT 192 TH/MM3 (150-450); RED BLOOD COUNT 3.82 MIL/MM3 (4.00-5.30); RED CELL DISTRIBUTION WIDTH 13.8 % (11.6-17.2); WHITE BLOOD COUNT 10.2 TH/MM3 (4.0-11.0)
[2017-08-07 10:17] LABS: ANION GAP 8 MEQ/L (5-15); AST (GOT) 14 U/L (15-37); BICARBONATE 22.4 MEQ/L (21.0-32.0); BLOOD UREA NITROGEN 11 MG/DL (7-18); CHLORIDE 109 MEQ/L (98-107); GLOMERULAR FILTRATION RATE 103 ML/MIN (>89); POTASSIUM 3.3 MEQ/L (3.5-5.1); SODIUM (NA) 139 MEQ/L (136-145)
[2017-08-07 10:18] LABS: ALT (GPT) 13 U/L (10-53)
[2017-08-07 10:20] LABS: ALKALINE PHOSPHATASE 48 U/L (45-117); TOTAL BILIRUBIN ADULT 0.6 MG/DL (0.2-1.0)
--- NOTE | 2017-08-07 11:52 | PD.CONS ---
History & Physical H&P Subjective Overnight had temperature 101.2. Vital signs otherwise within normal limits and stable. Today she feels improved from yesterday. Abdominal pain is still present , but is improving since admission. She's been having some diarrhea since she received her dose of antibiotics in the ER. Denies diarrhea outside the hospital. Denies chest pain, shortness of breath, dysuria, vaginal bleeding, vaginal discharge. Objective Gen.: Well-developed, well-nourished female lying in bed in no acute distress Vitals: As below Lungs: Clear to auscultation bilaterally, no crackles or wheezes Heart: Normal rate, regular rhythm, normal S1/S2, no murmur Abdomen: Soft, nondistended, mildly tender to palpation deeply of right and left pelvis. No rebound or guarding. Vital Signs Date Time Temp Pulse Resp B/P (MAP) Pulse Ox O2 Delivery O2 Flow Rate FiO2 08/07/17 08:13 98.1 102 20 131/91 (104) 95 08/06/17 09:00 Room Air Laboratory Tests Test 08/07/17 08:35 08/07/17 09:56 Blood Urea Nitrogen 11 MG/DL Creatinine 0.79 MG/DL Random Glucose 99 MG/DL Total Protein 7.8 GM/DL Albumin 2.5 GM/DL Calcium Level 8.3 MG/DL Alkaline Phosphatase 48 U/L Aspartate Amino Transf (AST/SGOT) 14 U/L Alanine Aminotransferase (ALT/SGPT) 13 U/L Total Bilirubin 0.6 MG/DL Sodium Level 139 MEQ/L Potassium Level 3.3 MEQ/L Chloride Level 109 MEQ/L Carbon Dioxide Level 22.4 MEQ/L Anion Gap 8 MEQ/L Estimat Glomerular Filtration Rate 103 ML/MIN White Blood Count 10.2 TH/MM3 Red Blood Count 3.82 MIL/MM3 Hemoglobin 10.8 GM/DL Hematocrit 33.0 % Mean Corpuscular Volume 86.2 FL Mean Corpuscular Hemoglobin 28.4 PG Mean Corpuscular Hemoglobin Concent 32.9 % Red Cell Distribution Width 13.8 % Platelet Count 192 TH/MM3 Mean Platelet Volume 7.2 FL Neutrophils (%) (Auto) 82.9 % Lymphocytes (%) (Auto) 9.0 % Monocytes (%) (Auto) 7.7 % Eosinophils (%) (Auto) 0.1 % Basophils (%) (Auto) 0.3 % Neutrophils # (Auto) 8.4 TH/MM3 Lymphocytes # (Auto) 0.9 TH/MM3 Monocytes # (Auto) 0.8 TH/MM3 Eosinophils # (Auto) 0.0 TH/MM3 Basophils # (Auto) 0.0 TH/MM3 CBC Comment DIFF FINAL Differential Comment INTAKE & OUTPUT 08/07/17 08/07/17 08/07/17 07:00 15:00 23:00 Intake Total 1636 ml Balance 1636 ml Current Medications Medications (Trade) Dose Ordered Sig/Monique Route PRN Reason Start Time Stop Time Status Last Admin Dose Admin Acetaminophen (Tylenol) 650 mg ONCE ONCE PO 08/06/17 05:45 08/06/17 05:46 DC 08/06/17 05:57 Sodium Chloride 1,000 ml @ 1,000 mls/hr Q1H ONCE IV 08/06/17 05:40 08/06/17 06:39 DC 08/06/17 05:45 Sodium Chloride 1,000 ml @ 1,000 mls/hr Q1H ONCE IV 08/06/17 05:40 08/06/17 06:39 DC Sodium Chloride 700 ml @ 1,000 mls/hr Q42M ONCE IV 08/06/17 05:40 08/06/17 06:21 DC 08/06/17 07:14 Ondansetron HCl (Zofran Inj) 4 mg ONCE ONCE IV 08/06/17 06:00 08/06/17 06:01 DC 08/06/17 05:56 Ondansetron HCl (Zofran Inj) 4 mg STK-MED ONCE .ROUTE 08/06/17 05:48 08/06/17 05:49 DC Iohexol (Omnipaque 350 Inj) 100 ml STK-MED ONCE IVCONTRAST 08/06/17 06:37 08/06/17 06:38 DC 08/06/17 06:37 Vancomycin HCl 1000 mg/Sodium Chloride 250 ml @ 250 mls/hr ONCE ONCE IV 08/06/17 07:00 08/06/17 07:59 DC 08/06/17 08:46 Piperacillin Sod/ Tazobactam Sod 50 ml @ 100 mls/hr ONCE ONCE IV 08/06/17 07:00 08/06/17 07:29 DC 08/06/17 07:14 Sodium Chloride 1,000 ml @ 100 mls/hr Q10H IV 08/06/17 08:02 08/07/17 08:36 Sodium Chloride (NS Flush) 2 ml UNSCH PRN IV FLUSH FLUSH AFTER USING IV ACCESS 08/06/17 08:15 Sodium Chloride (NS Flush) 2 ml BID IV FLUSH 08/06/17 09:00 08/06/17 21:00 Ondansetron HCl (Zofran Inj) 4 mg Q6H PRN IVP NAUSEA OR VOMITING 08/06/17 08:15 Naloxone HCl (Narcan Inj) 0.4 mg UNSCH PRN IV PUSH SEE LABEL COMMENTS 08/06/17 08:15 Magnesium Hydroxide (Milk Of Magnesia Liq) 30 ml Q12H PRN PO MILD - MODERATE CONSTIPATION 08/06/17 08:15 Sennosides (Senokot) 17.2 mg Q12H PRN PO MODERATE - SEVERE CONSTIPATION 08/06/17 08:15 Bisacodyl (Dulcolax Supp) 10 mg DAILY PRN RECTAL SEVERE CONSITIPATION 08/06/17 08:15 Lactulose (Lactulose Liq) 30 ml DAILY PRN PO SEVERE CONSITIPATION 08/06/17 08:15 Piperacillin Sod/ Tazobactam Sod 50 ml @ 100 mls/hr Q6H IV 08/06/17 13:00 08/06/17 13:00 DC Pharmacy Profile Note 0 ml @ 0 mls/hr UNSCH OTHER 08/06/17 08:15 08/06/17 12:02 DC Vancomycin HCl 1000 mg/Sodium Chloride 250 ml @ 250 mls/hr Q12H IV 08/06/17 21:00 08/06/17 21:00 DC Miscellaneous Information SPECIFIC LAB TO BE DRAWN:VANCOMY... ONCE ONCE .XX 08/07/17 20:45 08/07/17 20:46 Cancel Gentamicin Sulfate 400 mg/ Sodium Chloride 110 ml @ 100 mls/hr Q24H IV 08/06/17 12:00 08/06/17 12:37 DC Ampicillin Sodium 2000 mg/Sodium Chloride 100 ml @ 400 mls/hr Q6H IV 08/06/17 12:00 08/06/17 12:37 DC Clindamycin Phosphate 900 mg/ Sodium Chloride 106 ml @ 212 mls/hr Q8H IV 08/06/17 13:00 10/1/17 04:30 Piperacillin Sod/ Tazobactam Sod 50 ml @ 100 mls/hr Q6H IV 08/06/17 14:00 08/07/17 08:36 Influenza Virus Vaccine (Flu (Quadrivalent) Vaccine Inj) 0.5 ml ONCE ONCE IM 08/08/17 10:00 08/08/17 10:01 Pneumococcal Polyvalent Vaccine (Pneumovax-23 Inj) 25 mcg ONCE ONCE IM 08/07/17 10:00 08/07/17 10:01 DC Acetaminophen (Tylenol) 650 mg Q6H PRN PO FEVER 08/06/17 17:15 08/07/17 02:02 Acetaminophen/ Hydrocodone Bitart ([place] 5-325 Mg) 1 tab Q4H PRN PO PAIN SCALE 3 TO 5 08/06/17 23:30 Acetaminophen/ Hydrocodone Bitart ([place] 7.5-325 Mg) 1 tab Q4H PRN PO PAIN SCALE 6 TO 10 08/06/17 23:30 08/07/17 01:52 Naloxone HCl (Narcan Inj) 0.4 mg UNSCH PRN IV PUSH SEE LABEL COMMENTS 08/06/17 23:30 Assessment and Plan 32-year-old female with two-day history of abdominal pain found to have bilateral pelvic abscess #1 pelvic abscess Currently stable, does not have a surgical abdomen, exam improved from admission Urine test negative - Status post vancomycin and Zosyn in the emergency department - Infectious disease consult, appreciate recommendations - Continue Zosyn dosed per ID - Continue Clindamycin 900 mg IV Q8H - If clinically deteriorating or acute abdomen develops, consider surgical management - Tylenol as needed for fever - Pain management per primary team - Lactobacillus probiotic BID #2 HIV Questionable compliance, not currently on antivirals, latest CD4 and viral load unknown - Consult infectious disease, appreciate recommendations and assistance #3 tobacco abuse Cessation counseling prior to discharge (Bernardo Reeves MD R2) H&P Patient seen and evaluated with resident under direct supervision, agree with assessment and plan. (Bobby Barr MD) Bernardo Reeves MD R2 Aug 07, 2017 11:52 Bobby Barr MD Aug 13, 2017 10:18
[2017-08-07] MEDS ORDERED: LACTOBACILLUS ACIDOPHILUS TAB PO ONE (12:00)
[2017-08-07] MEDS ORDERED: POTASSIUM CHLORIDE 10 MEQ CONTROLLED RELEASE TAB PO ONE (13:00)
[2017-08-07] MEDS: SODIUM CHLORIDE 0.9% FLUSH 10 ML FLUSH IV FLUSH SCH ×2 (15:26→20:40)
--- NOTE | 2017-08-07 20:34 | HHI.PR ---
Subjective Remarks Patient seen today around noon. Walking around room. Says she is feeling better. Pain improved Objective Vital Signs Date Time Temp Pulse Resp B/P (MAP) Pulse Ox O2 Delivery O2 Flow Rate FiO2 08/07/17 16:26 99.0 110 20 136/93 (107) 98 08/07/17 12:00 99 08/07/17 11:52 98.0 109 20 131/81 (98) 99 08/07/17 08:13 98.1 102 20 131/91 (104) 95 08/07/17 04:49 98.7 104 17 113/68 (83) 96 08/07/17 03:36 18 08/07/17 03:32 18 08/07/17 01:59 101.2 110 18 97 08/07/17 00:32 100.0 122 17 131/86 (101) 97 I/O 08/06/17 08/06/17 08/06/17 08/07/17 08/07/17 08/07/17 07:00 15:00 23:00 07:00 15:00 23:00 Intake Total 2000 ml 50 ml 1636 ml 1380 ml Balance 2000 ml 50 ml 1636 ml 1380 ml Intake Oral 480 ml 960 ml IV Total 2000 ml 50 ml 1156 ml 420 ml # Voids 7 4 # Bowel Movements 5 1 Result Diagram: 08/07/17 0956 08/07/17 0835 Objective Remarks GENERAL: patient walking in room. Appears comfortable. SKIN: Warm and dry. HEAD: Normocephalic. EYES: No scleral icterus. No injection or drainage. NECK: Supple, trachea midline. No JVD. CARDIOVASCULAR: Regular rate and rhythm without murmurs, gallops, or rubs. RESPIRATORY: Breath sounds equal bilaterally. No accessory muscle use. GASTROINTESTINAL: Abdomen soft,mild tenderness to palpation. No rebound or guarding. MUSCULOSKELETAL: No cyanosis, or edema. BACK: Nontender without obvious deformity. No CVA tenderness. A/P Assessment and Plan ==== 08/07/17 //Hypokalemia. Potassium 3.1. Replaced. //Pelvic abscess. Continue IV antibiotics. Leukocytosis improved. White blood cells 10.2 from 17.2 yesterday. Discussed with infectious disease. Continue to monitor.: Blood cultures negative to date. //Sepsis. Leukocytosis 17.2, tachycardia 130s, fever 102.8 //Possible small bronchopneumonia //Pelvic abscess -CT abdomen with pelvic abscess. Ultrasound confirms. Patient refuses vaginal ultrasound. -Chest x-ray with small right-sided bronchopneumonia. -Lactate 1.2 Blood cultures ordered and pending -Broad-spectrum IV antibiotics ordered. -Gynecology consult intrapelvic abscess. -Infectious disease following. Appreciate assistance. //HIV. Noncompliant with infectious disease follow-up or medications. -Infectious disease consult. Appreciate assistance. //History of hypertension. Blood pressure acceptable today. We will hold off on any blood pressure medications in the setting of sepsis. //Tobacco abuse. Cessation counseling provided. //Occasional marijuana use. Cessation counseling provided. //Prophylaxis. SCDs. Discharge Planning pending infectious disease, gynecology clearance. Caio Sinclair MD Aug 07, 2017 20:34
[2017-08-07] MEDS: LACTOBACILLUS ACIDOPHILUS TAB PO SCH (20:40)
[2017-08-07] MEDS ORDERED: PHARMACY ORDERED LAB ONE (20:45)
[2017-08-08] VITALS (8 sets, daily range): BP systolic 124–155; BP diastolic 85–99; PULSE 88–114; RESP 18–20; TEMP 98.2–99.1; O2SAT 96–100
[2017-08-08] MEDS: SODIUM CHLOR 0.9% 1000 ML INJ 1,000 ML IV SCH ×3 (00:43→20:02)
[2017-08-08] MEDS: PIPERACIL-TAZO 3.375 GM PREMIX 50 ML IV SCH ×2 (01:13→08:30)
[2017-08-08] MEDS: CLINDAMYCIN INJ 900 MG in SODIUM CHLORIDE 0.9% INJ 100 ML IV SCH (06:02)
[2017-08-08] MEDS: ACETAMINOPHEN 325 MG TAB PO PRN (06:05)
[2017-08-08] MEDS: SODIUM CHLORIDE 0.9% FLUSH 10 ML FLUSH IV FLUSH SCH ×2 (08:32→21:55)
[2017-08-08] MEDS: LACTOBACILLUS ACIDOPHILUS TAB PO SCH ×2 (08:34→21:54)
--- NOTE | 2017-08-08 09:38 | HHI.PR ---
Subjective Remarks Pt seen and examined this morning. Reports feeling much improved this morning. Did have fever overnight. Otherwise, pain is much improved. Tolerating PO. No nausea/vomiting. Objective Vital Signs Date Time Temp Pulse Resp B/P (MAP) Pulse Ox O2 Delivery O2 Flow Rate FiO2 08/08/17 08:39 98.2 96 20 138/86 (103) 100 08/08/17 05:30 99.0 98 18 141/94 (110) 96 08/08/17 03:48 114 08/08/17 01:20 98.2 91 18 124/89 (101) 98 08/07/17 21:50 18 08/07/17 21:30 114 08/07/17 20:34 102.0 110 19 95 08/07/17 20:29 101.5 105 18 127/77 (94) 96 08/07/17 16:26 99.0 110 20 136/93 (107) 98 08/07/17 12:00 99 08/07/17 11:52 98.0 109 20 131/81 (98) 99 I/O 08/07/17 08/07/17 08/07/17 08/08/17 08/08/17 08/08/17 07:00 15:00 23:00 07:00 15:00 23:00 Intake Total 1636 ml 1536 ml 1210 ml Balance 1636 ml 1536 ml 1210 ml Intake Oral 480 ml 960 ml 480 ml IV Total 1156 ml 576 ml 730 ml # Voids 7 4 5 # Bowel Movements 5 1 4 Result Diagram: 08/07/17 0956 08/07/17 0835 Imaging Last Impressions Chest X-Ray 08/06/17539 Signed Impressions: Service Date/Time: Sunday, August 06, 2017 05:59 - CONCLUSION: 1. Mild right basilar airspace disease. Differential diagnosis includes a small bronchopneumonia. Elie Calvert MD Abdomen/Pelvis CT 08/06/17539 Signed Impressions: Service Date/Time: Sunday, August 06, 2017 06:21 - CONCLUSION: 1. Complex multiloculated multiseptated mass in the pelvis measuring up to 12.1 cm in diameter. Differential diagnosis includes infection/abscess versus neoplasm possibly ovarian in origin. Small amount of free fluid in the pelvis. Mildly enlarged pelvic and left inguinal lymph nodes. No bowel obstruction or free air. Elie Calvert MD Pelvis Ultrasound 08/06/17 0000 Signed Impressions: Service Date/Time: Sunday, August 06, 2017 07:10 - CONCLUSION: The uterus is not visualized on this transabdominal exam and the patient refused a transvaginal exam. The uterus was normal in appearance on the comparison CT. The bilateral ovaries are surrounded by a closely adherent tubular structures which demonstrate alternating areas of thin and thickened donohue. No internal debris is identified within the lumens of the structures. Given the patient's presentation of fever and pain and the appearance of the closely adherent tubular structures this is concerning for PID with bilateral tubo-ovarian abscess. Neoplasm remains within the differential but is considered less likely. Recommend followup imaging after appropriate antibiotic therapy. Jovana Yip MD Objective Remarks GENERAL: NAD, lying in bed CARDIOVASCULAR: Regular rate and rhythm. RESPIRATORY: No accessory muscle use. Clear to auscultation. Breath sounds equal bilaterally. GASTROINTESTINAL: Abdomen soft, non-tender. Bowel sounds presents. MUSCULOSKELETAL: Extremities without clubbing, cyanosis, or edema. No obvious deformities. NEUROLOGICAL: Awake and alert. No obvious cranial nerve deficits. PSYCHIATRIC: Appropriate mood and affect; insight and judgment normal. Assessment and Plan Problem List: (1) Pelvic mass ICD Codes: R19.00 - Intra-abdominal and pelvic swelling, mass and lump, unspecified site Status: Acute Assessment and Plan 32-year-old female with two-day history of abdominal pain found to have bilateral pelvic abscess #1 pelvic abscess Currently stable, does not have a surgical abdomen Exam much improved. No pain on exam today. Febrile overnight up to 102 - Infectious disease consult, appreciate recommendations - Continue Zosyn dosed per ID - Continue Clindamycin 900 mg IV Q8H - If clinically deteriorating or acute abdomen develops, consider surgical management - If continues to be febrile through 72 hours, consider surgical management as well - Tylenol as needed for fever - Pain management per primary team - Lactobacillus probiotic BID #2 HIV Questionable compliance, not currently on antivirals, latest CD4 and viral load unknown - Infectious disease consulted, appreciate recommendations and assistance sdw Dr. Ward Dupree,Ethan Espino MD, R2 Aug 08, 2017 09:38
[2017-08-08] MEDS ORDERED: INFLUENZA VIRUS VACCINE (QUADRIVALENT) 0.5 ML SYR IM ONE (10:00)
[2017-08-08 10:38] LABS: AUTOMATED NEUTROPHIL # 5.1 TH/MM3 (1.8-7.7); BASOPHIL % 0.2 % (0.0-2.0); EOSINOPHIL % 0.3 % (0.0-4.0); HEMATOCRIT 30.8 % (35.0-46.0); HEMO FLAGS DIFF FINAL; LYMPH % 12.8 % (9.0-44.0); LYMPHOCYTE # 0.8 TH/MM3 (1.0-4.8); MEAN CELL VOLUME 87.8 FL (80.0-100.0); MEAN CORPUSCULAR HEMOGLOBIN 29.5 PG (27.0-34.0); MEAN CORPUSCULAR HGB CONC 33.6 % (32.0-36.0); MONO % 8.5 % (0.0-8.0); NEUT % 78.2 % (16.0-70.0); PLATELET COUNT 204 TH/MM3 (150-450); RED BLOOD COUNT 3.51 MIL/MM3 (4.00-5.30); RED CELL DISTRIBUTION WIDTH 13.8 % (11.6-17.2); WHITE BLOOD COUNT 6.5 TH/MM3 (4.0-11.0)
[2017-08-08 11:02] LABS: BICARBONATE 21.5 MEQ/L (21.0-32.0); MAGNESIUM 1.9 MG/DL (1.5-2.5)
[2017-08-08 11:07] LABS: POTASSIUM 2.9 MEQ/L (3.5-5.1)
[2017-08-08] MEDS ORDERED: POTASSIUM PHOSPHATE INJ 15 MMOL in SODIUM CHLORIDE 0.9% INJ 150 ML IV ONE (12:00)
[2017-08-08] MEDS ORDERED: POTASSIUM CHLORIDE 10 MEQ CONTROLLED RELEASE TAB PO ONE (12:00)
--- NOTE | 2017-08-08 14:05 | HHI.IDPN ---
Subjective Subjective Remarks clinicallybetter, but cont to have intermittent fever Spiked up to 102 last night, currently afebrile No abdominal pain Pt and her female parthner confirmed that she has not beed followed by HIV provider for 1-2 yrs She is in a process to reestablish care with Dr Morales Pt is unablt to name barriers to compliance, her parthner thinks that pt" does not take her disease seriously" Pt can not recall her last CD4 count that was obtained 1-2 yrs ago Antibiotics zosyn Allergies: Coded Allergies: No Known Allergies (Verified , 08/06/17) Objective . Vital Signs Date Time Temp Pulse Resp B/P (MAP) Pulse Ox O2 Delivery O2 Flow Rate FiO2 08/08/17 12:17 98.4 88 20 142/99 (113) 100 08/08/17 08:39 98.2 96 20 138/86 (103) 100 08/08/17 08:03 90 08/08/17 05:30 99.0 98 18 141/94 (110) 96 08/08/17 03:48 114 08/08/17 01:20 98.2 91 18 124/89 (101) 98 08/07/17 21:50 18 08/07/17 21:30 114 08/07/17 20:34 102.0 110 19 95 08/07/17 20:29 101.5 105 18 127/77 (94) 96 08/07/17 16:26 99.0 110 20 136/93 (107) 98 08/08/17 08/08/17 08/09/17 15:00 23:00 07:00 Intake Total 50 ml Balance 50 ml IV Total 50 ml . Laboratory Tests Test 08/07/17 09:56 08/08/17 09:31 White Blood Count 10.2 TH/MM3 6.5 TH/MM3 Red Blood Count 3.82 MIL/MM3 3.51 MIL/MM3 Hemoglobin 10.8 GM/DL 10.4 GM/DL Hematocrit 33.0 % 30.8 % Mean Corpuscular Volume 86.2 FL 87.8 FL Mean Corpuscular Hemoglobin 28.4 PG 29.5 PG Mean Corpuscular Hemoglobin Concent 32.9 % 33.6 % Red Cell Distribution Width 13.8 % 13.8 % Platelet Count 192 TH/MM3 204 TH/MM3 Mean Platelet Volume 7.2 FL 7.2 FL Neutrophils (%) (Auto) 82.9 % 78.2 % Lymphocytes (%) (Auto) 9.0 % 12.8 % Monocytes (%) (Auto) 7.7 % 8.5 % Eosinophils (%) (Auto) 0.1 % 0.3 % Basophils (%) (Auto) 0.3 % 0.2 % Neutrophils # (Auto) 8.4 TH/MM3 5.1 TH/MM3 Lymphocytes # (Auto) 0.9 TH/MM3 0.8 TH/MM3 Monocytes # (Auto) 0.8 TH/MM3 0.6 TH/MM3 Eosinophils # (Auto) 0.0 TH/MM3 0.0 TH/MM3 Basophils # (Auto) 0.0 TH/MM3 0.0 TH/MM3 CBC Comment DIFF FINAL DIFF FINAL Differential Comment Laboratory Tests Test 08/07/17 08:35 08/08/17 09:31 Blood Urea Nitrogen 11 MG/DL 8 MG/DL Creatinine 0.79 MG/DL 0.64 MG/DL Random Glucose 99 MG/DL 108 MG/DL Total Protein 7.8 GM/DL Albumin 2.5 GM/DL 2.3 GM/DL Calcium Level 8.3 MG/DL 7.9 MG/DL Alkaline Phosphatase 48 U/L Aspartate Amino Transf (AST/SGOT) 14 U/L Alanine Aminotransferase (ALT/SGPT) 13 U/L Total Bilirubin 0.6 MG/DL Sodium Level 139 MEQ/L 139 MEQ/L Potassium Level 3.3 MEQ/L 2.9 MEQ/L Chloride Level 109 MEQ/L 110 MEQ/L Carbon Dioxide Level 22.4 MEQ/L 21.5 MEQ/L Anion Gap 8 MEQ/L 8 MEQ/L Estimat Glomerular Filtration Rate 103 ML/MIN 131 ML/MIN Phosphorus Level 2.1 MG/DL Magnesium Level 1.9 MG/DL Microbiology Date/Time Source Procedure Growth Status 08/06/17 05:45 Blood Peripheral Aerobic Blood Culture - Preliminary NO GROWTH IN 2 DAYS Resulted 08/06/17 05:45 Blood Peripheral Anaerobic Blood Culture - Preliminary NO GROWTH IN 2 DAYS Resulted 08/06/17 05:30 Blood Peripheral Aerobic Blood Culture - Preliminary NO GROWTH IN 2 DAYS Resulted 08/06/17 05:30 Blood Peripheral Anaerobic Blood Culture - Preliminary NO GROWTH IN 2 DAYS Resulted 08/06/17 06:03 Nasal Washing Influenza Types A,B Antigen ([facility]) - Final NEGATIVE FOR FLU A AND B ANTIGEN.... Complete Imaging Last Impressions Chest X-Ray 08/06/1740 Signed Impressions: Service Date/Time: Sunday, August 06, 2017 05:59 - CONCLUSION: 1. Mild right basilar airspace disease. Differential diagnosis includes a small bronchopneumonia. Elie Calvert MD Abdomen/Pelvis CT 08/06/17 0540 Signed Impressions: Service Date/Time: Sunday, August 06, 2017 06:21 - CONCLUSION: 1. Complex multiloculated multiseptated mass in the pelvis measuring up to 12.1 cm in diameter. Differential diagnosis includes infection/abscess versus neoplasm possibly ovarian in origin. Small amount of free fluid in the pelvis. Mildly enlarged pelvic and left inguinal lymph nodes. No bowel obstruction or free air. Elie Calvert MD Pelvis Ultrasound 08/06/17 0000 Signed Impressions: Service Date/Time: Sunday, August 06, 2017 07:10 - CONCLUSION: The uterus is not visualized on this transabdominal exam and the patient refused a transvaginal exam. The uterus was normal in appearance on the comparison CT. The bilateral ovaries are surrounded by a closely adherent tubular structures which demonstrate alternating areas of thin and thickened donohue. No internal debris is identified within the lumens of the structures. Given the patient's presentation of fever and pain and the appearance of the closely adherent tubular structures this is concerning for PID with bilateral tubo-ovarian abscess. Neoplasm remains within the differential but is considered less likely. Recommend followup imaging after appropriate antibiotic therapy. oJvana Yip MD Physical Exam CONSTITUTIONAL/GENERAL: This is an obese patient, in no apparent distress, but looks sick TUBES/LINES/DRAINS: SKIN: No jaundice, rashes, or lesions. Skin temperature appropriate. Not diaphoretic. ENT: NO thrush CARDIOVASCULAR: Regular rate and rhythm without murmurs, gallops, or rubs. No JVD. Peripheral pulses symmetric. RESPIRATORY/CHEST: Symmetric, unlabored respirations. Clear to auscultation. Breath sounds equal bilaterally. No wheezes, rales, or rhonchi. GASTROINTESTINAL: Abdomen soft,not tender to deep palpation and not distended. No hepato-splenomegaly, or palpable masses. No guarding. Bowel sounds present. MUSCULOSKELETAL: Extremities without clubbing, cyanosis, or edema. . No calf tenderness. No mottling or clubbing. NEUROLOGICAL: Awake and alert. Non focal PSYCHIATRIC: No obvious anxiety/depression. no apparent hallucinations or other psychotic thought process. Assessment & Plan Remarks PIDF with b/l TOA - Tuboovarian pelvic abscess, very large 12.1 cm ( complex fluid collection, fever and leukocytosis) - clincially improved, complete resulution of local smx - GC/chlam negative - no sex with males over 1 yr, she uses falloimitator intravaginally - COMMUNITY SERVICES MANAGER recommending conservative approach at this point Remains febrile, now intermittently - BC negative HIV disease, non compliant , off HAART 2 years - CD4 P Fever - 2/2 pelvic abscess: intermittet REC's: 1. For TOA: Cont broad spectrum abx (zosyn); can change to Unasyn, doxy PO anticipate at least 2 weeks of abx with transition to oral prior to dc COMMUNITY SERVICES MANAGER ff, no plans for surgery at this point fu blood clx until final 2. For HIV disease: - fu CD4 count, appropriate PCP and MAC profilaxis per CD4 results - viral load and genotyupe should be done as o/p prior to her 1st rochelle - expect VL to be high 2/2 2 yrs of non comliance - not a candidate for in-pt HAART 2/2 non compliance - fu with Dr Morales upon d/c with all appropriate blood work including genotype to be completed prior to selecting HAART dw COMMUNITY SERVICES MANAGER hospitalist re mngmnt of HIV dz and TOA and timing of surgery Margaux Lipscomb MD Aug 08, 2017 14:05
[2017-08-08] MEDS: DOXYCYCLINE HYCLATE 100 MG TAB PO SCH ×2 (15:28→21:54)
[2017-08-08] MEDS: AMPICILLIN-SULBACTAM INJ 3 GM in SODIUM CHLORIDE 0.9% INJ 100 ML IV SCH ×2 (15:29→21:55)
--- NOTE | 2017-08-08 19:28 | HHI.PR ---
Subjective Remarks Patient seen today around noon. Says she feels all right today. Denies any pain. Denies any nausea or vomiting. Did have a fever over night. Objective Vital Signs Date Time Temp Pulse Resp B/P (MAP) Pulse Ox O2 Delivery O2 Flow Rate FiO2 08/08/17 15:50 99.1 105 20 138/85 (102) 100 08/08/17 12:17 98.4 88 20 142/99 (113) 100 08/08/17 08:39 98.2 96 20 138/86 (103) 100 08/08/17 08:03 90 08/08/17 05:30 99.0 98 18 141/94 (110) 96 08/08/17 03:48 114 08/08/17 01:20 98.2 91 18 124/89 (101) 98 08/07/17 21:50 18 08/07/17 21:30 114 08/07/17 20:34 102.0 110 19 95 08/07/17 20:29 101.5 105 18 127/77 (94) 96 I/O 08/07/17 08/07/17 08/07/17 08/08/17 08/08/17 08/08/17 07:00 15:00 23:00 07:00 15:00 23:00 Intake Total 1636 ml 1536 ml 1210 ml 1490 ml 1152 ml Balance 1636 ml 1536 ml 1210 ml 1490 ml 1152 ml Intake Oral 480 ml 960 ml 480 ml 1440 ml IV Total 1156 ml 576 ml 730 ml 50 ml 1152 ml # Voids 7 4 5 4 # Bowel Movements 5 1 4 4 Result Diagram: 08/08/1793008/08/17930 Objective Remarks GENERAL: patient walking in room. Appears comfortable.no appreciable change on exam today SKIN: Warm and dry. HEAD: Normocephalic. EYES: No scleral icterus. No injection or drainage. NECK: Supple, trachea midline. No JVD. CARDIOVASCULAR: Regular rate and rhythm without murmurs, gallops, or rubs. RESPIRATORY: Breath sounds equal bilaterally. No accessory muscle use. GASTROINTESTINAL: Abdomen soft,mild tenderness to palpation. No rebound or guarding. MUSCULOSKELETAL: No cyanosis, or edema. BACK: Nontender without obvious deformity. No CVA tenderness. A/P Assessment and Plan ==== 08/08/17 //Hypokalemia. Potassium 2.9. Replaced. Recheck tomorrow //Pelvic abscess. Continues with fever overnight. Blood cultures negative to date. Continue IV antibiotics as per infectious disease. Appreciate gynecology assistance. If continues with fevers, consider surgical management. //Sepsis. Leukocytosis 17.2 on admission, tachycardia 130s, fever 102.8 //Possible small bronchopneumonia //Pelvic abscess -CT abdomen with pelvic abscess. Ultrasound confirms. Patient refuses vaginal ultrasound. -Chest x-ray with small right-sided bronchopneumonia. -Lactate 1.2 Blood cultures ordered and pending -Broad-spectrum IV antibiotics ordered. -Gynecology consult intrapelvic abscess. -Infectious disease following. Appreciate assistance. //HIV. Noncompliant with infectious disease follow-up or medications. -Infectious disease consult. Appreciate assistance. //History of hypertension. Blood pressure acceptable today. We will hold off on any blood pressure medications in the setting of sepsis. //Tobacco abuse. Cessation counseling provided. //Occasional marijuana use. Cessation counseling provided. //Prophylaxis. SCDs. Discharge Planning pending infectious disease, gynecology clearance. Caio Sinclair MD Aug 08, 2017 19:28
[2017-08-08] MEDS ORDERED: POTASSIUM CHLORIDE 20 MEQ CONTROLLED RELEASE TAB PO ONE (19:30)
[2017-08-09] VITALS (7 sets, daily range): BP systolic 137–158; BP diastolic 85–100; PULSE 84–98; RESP 18–20; TEMP 98–100; O2SAT 97–100
[2017-08-09] MEDS: AMPICILLIN-SULBACTAM INJ 3 GM in SODIUM CHLORIDE 0.9% INJ 100 ML IV SCH ×4 (03:50→22:22)
[2017-08-09] MEDS: SODIUM CHLOR 0.9% 1000 ML INJ 1,000 ML IV SCH ×2 (06:02→15:09)
[2017-08-09] MEDS: SODIUM CHLORIDE 0.9% FLUSH 10 ML FLUSH IV FLUSH SCH ×2 (08:26→22:28)
[2017-08-09] MEDS: LACTOBACILLUS ACIDOPHILUS TAB PO SCH ×2 (08:26→22:22)
[2017-08-09] MEDS: DOXYCYCLINE HYCLATE 100 MG TAB PO SCH ×2 (08:26→22:23)
[2017-08-09 08:45] LABS: AUTOMATED NEUTROPHIL # 3.4 TH/MM3 (1.8-7.7); BASOPHIL % 0.3 % (0.0-2.0); EOSINOPHIL % 0.4 % (0.0-4.0); HEMATOCRIT 29.9 % (35.0-46.0); HEMO FLAGS DIFF FINAL; LYMPH % 22.8 % (9.0-44.0); LYMPHOCYTE # 1.2 TH/MM3 (1.0-4.8); MEAN CELL VOLUME 86.5 FL (80.0-100.0); MEAN CORPUSCULAR HEMOGLOBIN 28.9 PG (27.0-34.0); MEAN CORPUSCULAR HGB CONC 33.4 % (32.0-36.0); MONO % 11.7 % (0.0-8.0); NEUT % 64.8 % (16.0-70.0); PLATELET COUNT 216 TH/MM3 (150-450); RED BLOOD COUNT 3.46 MIL/MM3 (4.00-5.30); WHITE BLOOD COUNT 5.2 TH/MM3 (4.0-11.0)
[2017-08-09 09:07] LABS: BICARBONATE 22.3 MEQ/L (21.0-32.0); MAGNESIUM 1.7 MG/DL (1.5-2.5); POTASSIUM 3.1 MEQ/L (3.5-5.1)
--- NOTE | 2017-08-09 19:36 | HHI.PR ---
Subjective Remarks Patient seen this morning around 10 AM. Says she feels the right. Denies any chest pain or shortness of breath. Denies any nausea or vomiting. Denies any abdominal pain Objective Vital Signs Date Time Temp Pulse Resp B/P (MAP) Pulse Ox O2 Delivery O2 Flow Rate FiO2 08/09/17 16:00 98.7 86 20 141/100 (114) 98 08/09/17 12:46 98.0 85 20 137/95 (109) 97 08/09/17 08:48 100.0 84 20 145/85 (105) 98 08/09/17 08:03 89 08/09/17 04:00 98.2 98 18 156/98 (117) 100 08/09/17 00:00 99.6 98 18 139/91 (107) 100 08/08/17 20:00 98.5 104 18 155/96 (115) 100 I/O 08/08/17 08/08/17 08/08/17 08/09/17 08/09/17 08/09/17 07:00 15:00 23:00 07:00 15:00 23:00 Intake Total 1210 ml 1490 ml 1152 ml 680 ml Balance 1210 ml 1490 ml 1152 ml 680 ml Intake Oral 480 ml 1440 ml 480 ml IV Total 730 ml 50 ml 1152 ml 200 ml # Voids 5 4 7 # Bowel Movements 4 4 3 Result Diagram: 08/09/1780008/09/17800 Objective Remarks GENERAL: patient in bed Appears comfortable.no change on exam today SKIN: Warm and dry. HEAD: Normocephalic. EYES: No scleral icterus. No injection or drainage. NECK: Supple, trachea midline. No JVD. CARDIOVASCULAR: Regular rate and rhythm without murmurs, gallops, or rubs. RESPIRATORY: Breath sounds equal bilaterally. No accessory muscle use. GASTROINTESTINAL: Abdomen soft,mild tenderness to palpation. No rebound or guarding. MUSCULOSKELETAL: No cyanosis, or edema. BACK: Nontender without obvious deformity. No CVA tenderness. A/P Assessment and Plan ==== 08/09/17 //Hypokalemia. Potassium 3.1. Replaced. //Pelvic abscess. Patient was low-grade fevers 100.0 this morning. Continued management as per gynecology. Appreciate assistance. Discussed with infectious disease. //Sepsis. Leukocytosis 17.2 on admission, tachycardia 130s, fever 102.8 //Possible small bronchopneumonia //Pelvic abscess -CT abdomen with pelvic abscess. Ultrasound confirms. Patient refuses vaginal ultrasound. -Chest x-ray with small right-sided bronchopneumonia. -Lactate 1.2 Blood cultures ordered and pending -Broad-spectrum IV antibiotics ordered. -Gynecology consult intrapelvic abscess. -Infectious disease following. Appreciate assistance. //HIV. Noncompliant with infectious disease follow-up or medications. -Infectious disease consult. Appreciate assistance. //History of hypertension. Blood pressure acceptable today. We will hold off on any blood pressure medications in the setting of sepsis. //Tobacco abuse. Cessation counseling provided. //Occasional marijuana use. Cessation counseling provided. //Prophylaxis. SCDs. Discharge Planning pending gynecology clearance. Caio Sinclair MD Aug 09, 2017 19:36
[2017-08-09] MEDS ORDERED: MAGNESIUM OXIDE 400 MG TAB PO ONE (19:45)
[2017-08-09] MEDS ORDERED: POTASSIUM CHLORIDE 10 MEQ CONTROLLED RELEASE TAB PO ONE (19:45)
[2017-08-10] VITALS (11 sets, daily range): BP systolic 138–169; BP diastolic 83–107; PULSE 60–94; RESP 18–20; TEMP 98.3–98.9; O2SAT 96–100
[2017-08-10 03:51] LABS: CD4/CD8 RATIO 0.3 (0.86-5.00)
[2017-08-10] MEDS: AMPICILLIN-SULBACTAM INJ 3 GM in SODIUM CHLORIDE 0.9% INJ 100 ML IV SCH ×4 (04:16→20:15)
[2017-08-10] MEDS: LACTOBACILLUS ACIDOPHILUS TAB PO SCH ×2 (08:35→20:15)
[2017-08-10] MEDS: DOXYCYCLINE HYCLATE 100 MG TAB PO SCH ×2 (08:35→20:15)
[2017-08-10] MEDS: SODIUM CHLORIDE 0.9% FLUSH 10 ML FLUSH IV FLUSH SCH ×2 (08:37→20:15)
--- NOTE | 2017-08-10 09:52 | PD.CONS ---
History & Physical H&P Hospital day 5 IV antibiotic day 4 Patient feeling good overall has no complaints she has no abdominal pain and is been afebrile for 48 hours Exam no tenderness on exam of the pelvis White count has dropped significantly every time is been checked, she is afebrile for 48 hours with a MAXIMUM TEMPERATURE of 100.0 during that time Impressions tubo-ovarian abscess treated medically to this point Plan to consider discharge on oral antibiotics at this time essentially IV antibiotics as recommended medical treatment effective at this point she has no fever and no pain not sure what other endpoint we can get the with this If the infectious disease and or the ADVERTISING CONSULTANT service once some type of invasive procedure would recommend a intermenstrual interventional radiology sticking S tried to drain it (Florentin Hopper II, MD) H&P consulted interventional radiology for possible drainage of large TOA. Patient has remained afebrile >[address] Salazar/Osmani from [facility] aware of patient if needs ADVERTISING CONSULTANT surgery prior to discharge. (Jenifer Pichardo MD) Florentin Hopper II, MD Aug 10, 2017 09:52 Jenifer Pichardo MD Aug 11, 2017 09:40
--- NOTE | 2017-08-10 21:42 | HHI.PR ---
Subjective Remarks Patient seen this morning around 11 AM. Says she is feeling all right. Denies any abdominal pain. No fevers overnight. Objective Vital Signs Date Time Temp Pulse Resp B/P (MAP) Pulse Ox O2 Delivery O2 Flow Rate FiO2 08/10/17 20:00 98.9 69 18 169/107 (127) 98 08/10/17 16:00 98.7 84 20 154/92 (112) 96 08/10/17 13:12 98.3 73 20 153/83 (106) 100 08/10/17 10:56 61 08/10/17 08:00 98.9 79 20 157/88 (111) 96 08/10/17 05:20 91 08/10/17 05:00 98.5 75 18 138/87 (104) 99 08/10/17 00:26 98.6 94 18 142/96 (111) 99 I/O 08/09/17 08/09/17 08/09/17 08/10/17 08/10/17 08/10/17 07:00 15:00 23:00 07:00 15:00 23:00 Intake Total 680 ml 100 ml 340 ml 100 ml Balance 680 ml 100 ml 340 ml 100 ml Intake Oral 480 ml 240 ml IV Total 200 ml 100 ml 100 ml 100 ml # Voids 7 3 # Bowel Movements 3 Result Diagram: 08/09/1780008/09/17800 Objective Remarks GENERAL: patient in bed Appears comfortable.no change on exam. SKIN: Warm and dry. HEAD: Normocephalic. EYES: No scleral icterus. No injection or drainage. NECK: Supple, trachea midline. No JVD. CARDIOVASCULAR: Regular rate and rhythm without murmurs, gallops, or rubs. RESPIRATORY: Breath sounds equal bilaterally. No accessory muscle use. GASTROINTESTINAL: Abdomen soft,mild tenderness to palpation. No rebound or guarding. MUSCULOSKELETAL: No cyanosis, or edema. BACK: Nontender without obvious deformity. No CVA tenderness. A/P Assessment and Plan ==== 08/10/17 //Hypokalemia. Potassium 3.1 yesterday. Recheck ordered. //Pelvic abscess. Discussed with infectious disease again. Afebrile 48 hours. Possible discharge home tomorrow on oral antibiotics. Appreciate infectious disease assistance. //Sepsis. Leukocytosis 17.2 on admission, tachycardia 130s, fever 102.8 //Possible small bronchopneumonia //Pelvic abscess -CT abdomen with pelvic abscess. Ultrasound confirms. Patient refuses vaginal ultrasound. -Chest x-ray with small right-sided bronchopneumonia. -Lactate 1.2 Blood cultures ordered and pending -Broad-spectrum IV antibiotics ordered. -Gynecology consult intrapelvic abscess. -Infectious disease following. Appreciate assistance. //HIV. Noncompliant with infectious disease follow-up or medications. -Infectious disease consult. Appreciate assistance. //History of hypertension. Blood pressure acceptable today. We will hold off on any blood pressure medications in the setting of sepsis. //Tobacco abuse. Cessation counseling provided. //Occasional marijuana use. Cessation counseling provided. //Prophylaxis. SCDs. Discharge Planning likely discharge home tomorrow on oral antibiotics. Antibiotics as per infectious disease. Caio Sinclair MD Aug 10, 2017 21:42
[2017-08-10] MEDS ORDERED: LISINOPRIL 10 MG TAB PO ONE (21:45)
[2017-08-11 01:19] VITALS: BP 144/98; PULSE 71
[2017-08-11] MEDS: AMPICILLIN-SULBACTAM INJ 3 GM in SODIUM CHLORIDE 0.9% INJ 100 ML IV SCH ×4 (03:10→22:09)
[2017-08-11 04:00] VITALS: BP 161/92; PULSE 67; RESP 20; TEMP 98.8; O2SAT 99
[2017-08-11 08:00] VITALS: BP 140/92; PULSE 61; PULSE 63; RESP 18; TEMP 98.3; O2SAT 97
[2017-08-11] MEDS: LISINOPRIL 10 MG TAB PO SCH (09:17)
[2017-08-11] MEDS: DOXYCYCLINE HYCLATE 100 MG TAB PO SCH ×2 (09:17→22:09)
[2017-08-11] MEDS: LACTOBACILLUS ACIDOPHILUS TAB PO SCH ×2 (09:17→22:10)
[2017-08-11] MEDS: SODIUM CHLORIDE 0.9% FLUSH 10 ML FLUSH IV FLUSH SCH ×2 (09:18→22:09)
[2017-08-11 10:53] LABS: BICARBONATE 26.3 MEQ/L (21.0-32.0); MAGNESIUM 1.7 MG/DL (1.5-2.5); POTASSIUM 3.4 MEQ/L (3.5-5.1)
[2017-08-11 10:54] LABS: AUTOMATED NEUTROPHIL # 2.8 TH/MM3 (1.8-7.7); BASOPHIL % 0.3 % (0.0-2.0); EOSINOPHIL % 1.1 % (0.0-4.0); HEMATOCRIT 31.2 % (35.0-46.0); HEMO FLAGS DIFF FINAL; LYMPH % 25.2 % (9.0-44.0); LYMPHOCYTE # 1.2 TH/MM3 (1.0-4.8); MEAN CORPUSCULAR HEMOGLOBIN 29.5 PG (27.0-34.0); MEAN CORPUSCULAR HGB CONC 33.9 % (32.0-36.0); MONO % 11.8 % (0.0-8.0); NEUT % 61.6 % (16.0-70.0); PLATELET COUNT 288 TH/MM3 (150-450); RED BLOOD COUNT 3.58 MIL/MM3 (4.00-5.30); RED CELL DISTRIBUTION WIDTH 13.7 % (11.6-17.2); WHITE BLOOD COUNT 4.6 TH/MM3 (4.0-11.0)
[2017-08-11 12:00] VITALS: BP 135/100; PULSE 69; RESP 18; TEMP 98.5; O2SAT 100
[2017-08-11] MEDS ORDERED: LIDOCAINE HCL 1% 20 ML VIAL ONE (14:18)
[2017-08-11] MEDS ORDERED: LORazepam 2 MG/ML VIAL ONE (14:52)
--- NOTE | 2017-08-11 15:31 | PD.RAD ---
Post CT Procedure Prog Note Pre Procedure Diagnosis: (1) TOA (tubo-ovarian abscess) Post Procedure Diagnosis: (1) TOA (tubo-ovarian abscess) Procedure Date: Aug 11, 2017 Supervising Radiologist: Vinny Brasher Proceduralist/Assist: estela olmedo Estimated blood loss: none Anesthesia: Conscious Sedation Plan of Activity Patient to Unit: ROPU Patient Condition: Good Additional Comments: No fluid aspirated See PACS Report for procedural detail/treatment Vinny Brasher MD Aug 11, 2017 15:31
--- NOTE | 2017-08-11 15:50 | RADRPT ---
EXAM DATE/TIME: 08/11/2017 15:04 [place] COMPARISON: No previous studies available for comparison. INDICATIONS : Pelvic abscess. SEDATION TIME: 15 minutes MEDICATION(S): 1.) 100 mcg fentanyl (Sublimaze) IV 2.) 2 mg lorazepam (Ativan) IV DEVICE(S): 1.) 18 gauge Grewal blunt needle Total volume of 0 cc of fluid was removed. MEDICAL HISTORY : HIV. Hypertension. SURGICAL HISTORY : None. ENCOUNTER: Initial ACUITY: 1 day PAIN SCORE: 4/10 LOCATION: Bilateral pelvis PROCEDURE: 1.) Conscious sedation with continuous EKG and oximetry monitoring. 2.) EKG and oximetry remained stable throughout the procedure. PROCEDURE : CT guided aspiration in the pelvis The risks, benefits and alternatives to the procedure were explained and verbal and written consent w as obtained. Using automated exposure control and adjustment of the mA and/or kV according to patien t size, radiation dose was kept as low as reasonably achievable to obtain optimal diagnostic quality images. The site was prepped in sterile fashion. Full sterile technique was used, including cap, ma sk, sterile gloves and gown and a large sterile sheet. Hand hygiene and 2% chlorhexidine and/or beta dine/alcohol prep was utilized per protocol for cutaneous antisepsis. The skin and subcutaneous tiss ues were infiltrated with local anesthetic solution. DICOM format image data is available electronic ally for review and comparison. Grewal needle was placed within the left lower quadrant in the area of phlegmon reaction. No fluid a spirated. CONCLUSION: Unsuccessful aspiration of fluid/phlegmon reaction in the pelvis. Therefore no drain was placed. BLOCK CHOPPER HAND followup recommended. Vinny Brasher MD on August 11, 2017 at 15:47 Board Certified Radiologist. This report was verified electronically.
[2017-08-11 16:00] VITALS: BP 132/97; PULSE 92; RESP 18; TEMP 97.9; O2SAT 99
[2017-08-11 20:00] VITALS: BP 163/102; PULSE 88; RESP 20; TEMP 99; O2SAT 95
--- NOTE | 2017-08-11 23:02 | HHI.PR ---
Subjective Remarks Patient seen this morning around 10 AM. Denies any chest pain or shortness of breath. Abdominal pain resolved. Objective Vital Signs Date Time Temp Pulse Resp B/P (MAP) Pulse Ox O2 Delivery O2 Flow Rate FiO2 08/11/17 20:00 99.0 88 20 163/102 (122) 95 08/11/17 16:00 97.9 92 18 132/97 (109) 99 08/11/17 12:00 98.5 69 18 135/100 (112) 100 08/11/17 08:00 63 08/11/17 08:00 98.3 61 18 140/92 (108) 97 08/11/17 04:00 98.8 67 20 161/92 (115) 99 08/11/17 01:19 71 144/98 (113) I/O 08/11/17 08/11/17 08/11/17 08/12/17 08/12/17 08/12/17 07:00 15:00 23:00 07:00 15:00 23:00 Intake Total 100 ml Balance 100 ml IV Total 100 ml # Voids 2 Result Diagram: 08/11/1793208/11/17932 Objective Remarks GENERAL: patient in bed Appears comfortable.again, no change on exam SKIN: Warm and dry. HEAD: Normocephalic. EYES: No scleral icterus. No injection or drainage. NECK: Supple, trachea midline. No JVD. CARDIOVASCULAR: Regular rate and rhythm without murmurs, gallops, or rubs. RESPIRATORY: Breath sounds equal bilaterally. No accessory muscle use. GASTROINTESTINAL: Abdomen soft,mild tenderness to palpation. No rebound or guarding. MUSCULOSKELETAL: No cyanosis, or edema. BACK: Nontender without obvious deformity. No CVA tenderness. A/P Assessment and Plan ==== 08/11/17 //Hypokalemia. Potassium 3.4. Replace. //Pelvic abscess. Discussed with infectious disease again today.. Afebrile 72 hours. Gynecology ordered IR drainage which appears to be unsuccessful. Appreciate gynecology assistance. Continue antibiotics as per gynecology. Management as per gynecology. //Sepsis. Leukocytosis 17.2 on admission, tachycardia 130s, fever 102.8 //Possible small bronchopneumonia //Pelvic abscess -CT abdomen with pelvic abscess. Ultrasound confirms. Patient refuses vaginal ultrasound. -Chest x-ray with small right-sided bronchopneumonia. -Lactate 1.2 Blood cultures ordered and pending -Broad-spectrum IV antibiotics ordered. -Gynecology consult intrapelvic abscess. -Infectious disease following. Appreciate assistance. //HIV. Noncompliant with infectious disease follow-up or medications. -Infectious disease consult. Appreciate assistance. //History of hypertension. Blood pressure acceptable today. We will hold off on any blood pressure medications in the setting of sepsis. //Tobacco abuse. Cessation counseling provided. //Occasional marijuana use. Cessation counseling provided. //Prophylaxis. SCDs. Discharge Planning plan per gynecology. Discharge when cleared by gynecology. -discussed with infectious disease. Inpatient antibiotics as per gynecology. Infectious disease will decide on antibiotics to go home. Caio Sinclair MD Aug 11, 2017 23:02
[2017-08-12] VITALS: BP 141/89; PULSE 93; RESP 20; TEMP 97.8; O2SAT 98
[2017-08-12 01:39] VITALS: PULSE 80
[2017-08-12] MEDS: AMPICILLIN-SULBACTAM INJ 3 GM in SODIUM CHLORIDE 0.9% INJ 100 ML IV SCH ×2 (03:53→08:18)
[2017-08-12 04:00] VITALS: BP 151/86; PULSE 81; RESP 20; TEMP 98.2; O2SAT 99
[2017-08-12 08:00] VITALS: BP 154/100; PULSE 80; PULSE 92; RESP 20; TEMP 98.2; O2SAT 98
[2017-08-12] MEDS: DOXYCYCLINE HYCLATE 100 MG TAB PO SCH (08:17)
[2017-08-12] MEDS: LACTOBACILLUS ACIDOPHILUS TAB PO SCH (08:17)
[2017-08-12] MEDS: SODIUM CHLORIDE 0.9% FLUSH 10 ML FLUSH IV FLUSH SCH (08:18)
[2017-08-12] MEDS: LISINOPRIL 10 MG TAB PO SCH (08:18)
[2017-08-12 08:20] LABS: AUTOMATED NEUTROPHIL # 2.7 TH/MM3 (1.8-7.7); BASOPHIL % 0.4 % (0.0-2.0); EOSINOPHIL # 0.1 TH/MM3 (0-0.4); EOSINOPHIL % 1.6 % (0.0-4.0); HEMATOCRIT 31.7 % (35.0-46.0); HEMO FLAGS DIFF FINAL; LYMPH % 28.1 % (9.0-44.0); LYMPHOCYTE # 1.4 TH/MM3 (1.0-4.8); MEAN CELL VOLUME 85.1 FL (80.0-100.0); MEAN CORPUSCULAR HEMOGLOBIN 29.1 PG (27.0-34.0); MEAN CORPUSCULAR HGB CONC 34.1 % (32.0-36.0); MONO % 13.9 % (0.0-8.0); PLATELET COUNT 319 TH/MM3 (150-450); RED BLOOD COUNT 3.73 MIL/MM3 (4.00-5.30); RED CELL DISTRIBUTION WIDTH 13.5 % (11.6-17.2); WHITE BLOOD COUNT 4.8 TH/MM3 (4.0-11.0)
[2017-08-12 08:40] LABS: BICARBONATE 24.9 MEQ/L (21.0-32.0); MAGNESIUM 1.9 MG/DL (1.5-2.5); POTASSIUM 3.5 MEQ/L (3.5-5.1)
[2017-08-12 12:00] VITALS: BP 163/102; PULSE 74; RESP 20; TEMP 97.5; O2SAT 99
[2017-08-12] MEDS ORDERED: LISI10TA3 PO (14:01)
[2017-08-12] MEDS ORDERED: DOXY100T PO (14:01)
[2017-08-12] MEDS ORDERED: AUGM500T7 PO (14:01)
--- NOTE | 2017-08-12 17:45 | HHI.PR ---
Subjective Remarks Patient seen today around 1 PM. Says she is feeling all right. Denies any chest pain or shortness of breath. Objective Vital Signs Date Time Temp Pulse Resp B/P (MAP) Pulse Ox O2 Delivery O2 Flow Rate FiO2 08/12/17 12:00 97.5 74 20 163/102 (122) 99 08/12/17 08:00 98.2 80 20 154/100 (118) 98 08/12/17 08:00 92 08/12/17 04:00 98.2 81 20 151/86 (107) 99 08/12/17 01:39 80 08/12/17 00:00 97.8 93 20 141/89 (106) 98 08/11/17 20:00 99.0 88 20 163/102 (122) 95 I/O 08/11/17 08/11/17 08/11/17 08/12/17 08/12/17 08/12/17 07:00 15:00 23:00 07:00 15:00 23:00 Intake Total 100 ml 340 ml 100 ml Balance 100 ml 340 ml 100 ml Intake Oral 240 ml IV Total 100 ml 100 ml 100 ml # Voids 2 3 2 Result Diagram: 08/12/17 0755 08/12/17 0755 Objective Remarks GENERAL: patient in bed Appears comfortable. no change on exam SKIN: Warm and dry. HEAD: Normocephalic. EYES: No scleral icterus. No injection or drainage. NECK: Supple, trachea midline. No JVD. CARDIOVASCULAR: Regular rate and rhythm without murmurs, gallops, or rubs. RESPIRATORY: Breath sounds equal bilaterally. No accessory muscle use. GASTROINTESTINAL: Abdomen soft,mild tenderness to palpation. No rebound or guarding. MUSCULOSKELETAL: No cyanosis, or edema. BACK: Nontender without obvious deformity. No CVA tenderness. A/P Assessment and Plan ==== 08/12/17 //Hypokalemia. Potassium 3.5. Resolved after replacement. //Pelvic abscess. Discussed with catering truck driver motion picture director, who recommended discharge home on antibiotics to follow-up with gynecology as outpatient in 1 week. //Sepsis. Leukocytosis 17.2 on admission, tachycardia 130s, fever 102.8 //Possible small bronchopneumonia //Pelvic abscess -CT abdomen with pelvic abscess. Ultrasound confirms. Patient refuses vaginal ultrasound. -Chest x-ray with small right-sided bronchopneumonia. -Lactate 1.2 Blood cultures ordered and pending -Broad-spectrum IV antibiotics ordered. -Gynecology consult intrapelvic abscess. -Infectious disease following. Appreciate assistance. //HIV. Noncompliant with infectious disease follow-up or medications. -Infectious disease consult. Appreciate assistance. //History of hypertension. Blood pressure acceptable today. We will hold off on any blood pressure medications in the setting of sepsis. //Tobacco abuse. Cessation counseling provided. //Occasional marijuana use. Cessation counseling provided. //Prophylaxis. SCDs. Discharge Planning Discussed with both catering truck driver motion picture director, as well as infectious disease. Discharge home on doxycycline 100 mg twice daily for 14 days, as well as Augmentin 500 mg 3 times daily for 14 days. Follow-up with gynecology in one week. Discussed with case management who will arrange for follow-up. Appreciate assistance. Caio Sinclair MD Aug 12, 2017 17:45
--- NOTE | 2017-08-12 17:51 | HHI.DS ---
Discharge Summary Admission Date Aug 06, 2017 at 07:48 Discharge Date: Aug 12, 2017 Admitting Diagnosis Sepsis, pelvic mass vs abscess (1) HIV (human immunodeficiency virus infection) ICD Code: B20 - Human immunodeficiency virus [HIV] disease (2) TOA (tubo-ovarian abscess) ICD Code: N70.93 - Salpingitis and oophoritis, unspecified Procedures interventional radiology attempted CT-guided abscess drainage which was unsuccessful. Brief History - From Admission 32-year-old female with a history of HIV, noncompliant with medication regimen or follow-up, also with history of hypertension, who presents with 2 day history of severe constant lower abdominal pain. Denies any vaginal discharge. She denied fevers, however does report chills at home. Denies any chest pain , shortness of breath, nausea, vomiting, diarrhea, constipation. Regarding HIV follow-up, patient aida says that patient will follow-up for labs, however does not see her physician. Uncertain of most recent CD4 count. CBC/BMP: 08/12/17 0755 08/12/17 0755 Significant Findings Laboratory Tests Test 08/11/17 09:33 08/12/17 07:55 Red Blood Count 3.58 MIL/MM3 (4.00-5.30) 3.73 MIL/MM3 (4.00-5.30) Hemoglobin 10.6 GM/DL (11.6-15.3) 10.8 GM/DL (11.6-15.3) Hematocrit 31.2 % (35.0-46.0) 31.7 % (35.0-46.0) Monocytes (%) (Auto) 11.8 % (0.0-8.0) 13.9 % (0.0-8.0) Blood Urea Nitrogen 5 MG/DL (7-18) Albumin 2.5 GM/DL (3.4-5.0) 2.5 GM/DL (3.4-5.0) Potassium Level 3.4 MEQ/L (3.5-5.1) Mean Platelet Volume 6.7 FL (7.0-11.0) Imaging Last Impressions Needle Aspiration CT 08/11/17 0000 Signed Impressions: Service Date/Time: August 15:04 - CONCLUSION: Unsuccessful aspiration of fluid/phlegmon reaction in the pelvis. Therefore no drain was placed. POLISHING MACHINE TENDER followup recommended. Vinny Brasher MD Chest X-Ray 08/06/1740 Signed Impressions: Service Date/Time: Sunday, August 06, 2017 05:59 - CONCLUSION: 1. Mild right basilar airspace disease. Differential diagnosis includes a small bronchopneumonia. Elie Calvert MD Abdomen/Pelvis CT 08/06/1740 Signed Impressions: Service Date/Time: Sunday, August 06, 2017 06:21 - CONCLUSION: 1. Complex multiloculated multiseptated mass in the pelvis measuring up to 12.1 cm in diameter. Differential diagnosis includes infection/abscess versus neoplasm possibly ovarian in origin. Small amount of free fluid in the pelvis. Mildly enlarged pelvic and left inguinal lymph nodes. No bowel obstruction or free air. Elie Calvert MD Pelvis Ultrasound 08/06/17 0000 Signed Impressions: Service Date/Time: Sunday, August 06, 2017 07:10 - CONCLUSION: The uterus is not visualized on this transabdominal exam and the patient refused a transvaginal exam. The uterus was normal in appearance on the comparison CT. The bilateral ovaries are surrounded by a closely adherent tubular structures which demonstrate alternating areas of thin and thickened donohue. No internal debris is identified within the lumens of the structures. Given the patient's presentation of fever and pain and the appearance of the closely adherent tubular structures this is concerning for PID with bilateral tubo-ovarian abscess. Neoplasm remains within the differential but is considered less likely. Recommend followup imaging after appropriate antibiotic therapy. Jovana Yip MD Hospital Course Patient presented with leukocytosis 17, sepsis. CT abdomen showed pelvic abscess 12 cm as above. Patient was started on broad-spectrum antibiotics. Infectious disease and gynecology were consult and. Patient continued to have fevers on hospital day 1 and 2, however fevers resolved and she is afebrile 72 hours at discharge. Leukocytosis has resolved. Patient underwent unsuccessful IR drainage attempt on 08/11. As per gynecology, patient will be discharged home on 2 week course of Augmentin and doxycycline, with follow-up gynecology in one week. Appreciate assistance. patient was advised to follow up with outpatient infectious disease for restarting antiretroviral regimen for HIV. CD4 count in the 140s on this admission. Appreciate infectious disease assistance. blood pressure is also found to be elevated in the 170 systolic. Lisinopril 10 mg daily was started. She is advised to follow-up with primary care. For problem-based summary from most recent progress note, please see below. ==== 08/12/17 //Hypokalemia. Potassium 3.5. Resolved after replacement. //Pelvic abscess. Discussed with operations lead cartoon designer, who recommended discharge home on antibiotics to follow-up with gynecology as outpatient in 1 week. //Sepsis. Leukocytosis 17.2 on admission, tachycardia 130s, fever 102.8 //Possible small bronchopneumonia //Pelvic abscess -CT abdomen with pelvic abscess. Ultrasound confirms. Patient refuses vaginal ultrasound. -Chest x-ray with small right-sided bronchopneumonia. -Lactate 1.2 Blood cultures ordered and pending -Broad-spectrum IV antibiotics ordered. -Gynecology consult intrapelvic abscess. -Infectious disease following. Appreciate assistance. //HIV. Noncompliant with infectious disease follow-up or medications. -Infectious disease consult. Appreciate assistance. //History of hypertension. Blood pressure acceptable today. We will hold off on any blood pressure medications in the setting of sepsis. //Tobacco abuse. Cessation counseling provided. //Occasional marijuana use. Cessation counseling provided. //Prophylaxis. SCDs. Discharge Planning Discussed with both operations lead cartoon designer, as well as infectious disease. Discharge home on doxycycline 100 mg twice daily for 14 days, as well as Augmentin 500 mg 3 times daily for 14 days. Follow-up with gynecology in one week. Discussed with case management who will arrange for follow-up. Appreciate assistance. Pt Condition on Discharge: Good Discharge Disposition: Discharge Home Discharge Time: > 30 minutes Discharge Instructions DIET: Follow Instructions for: Heart Healthy Diet Activities you can perform: Regular-No Restrictions Follow up Referrals: Infectious Disease - 1 Week FORM BLOCK MAKER - 1 Week with Zeenat Salazar MD PCP Follow-up - 1 Week New Medications: Amoxicillin-Clavulanate (Augmentin) 500-125 mg Tab 500 MG PO Q8H for Infection for 14 Days, TAB 0 Refills Doxycycline Hyclate (Doxycycline Hyclate) 100 Mg Tab 100 MG PO Q12HR for infection for 14 Days, TAB Lisinopril (Lisinopril) 10 Mg Tab 10 MG PO DAILY for Blood Pressure Management for 30 Days, #30 TAB Continued Medications: [Unk Hiv Med] () DAILY Caio Sinclair MD Aug 12, 2017 17:51
== END 2017-08-12 14:48 | disposition home or self-care (01) | DRG 871 ==
LOC: NEPE 05:33 → NEDA 07:48 → N05A 13:17
PROVIDERS: ADMIT Internal Medicine; ATTEND Internal Medicine
PROC: 0WJJ3ZZ Inspection of Pelvic Cavity, Percutaneous Approach (ICD-10-PCS; principal; 2017-08-11)
DX: A41.9 Sepsis, unspecified organism (principal); J18.0 Bronchopneumonia, unspecified organism; Z91.14 Patient's other noncompliance with medication regimen; Z91.19 Patient's noncompliance with other medical treatment and regimen; I10 Essential (primary) hypertension; F17.210 Nicotine dependence, cigarettes, uncomplicated; Z21 Asymptomatic human immunodeficiency virus [HIV] infection status; E87.6 Hypokalemia; N70.93 Salpingitis and oophoritis, unspecified
CPT/HCPCS: 10022; 71010; 74177; 76856; 77012; 80053; 80069; 81001; 83605; 83690; 83735; 84484; 84703; 85025; 85610; 85730; 86355; 86357; 86359; 86360; 87040; 87491; 87591; 87804; 93005; 93975; 96361; 96365; 96375; J0295; J2060; J2405; J2543; J3010; J3370; J7030; J7050; Q9967